=== PATIENT | male | born 1960 | race Caucasian/White ===

== ENCOUNTER → 2019-11-23 | Outpatient (CLI) | payer OTHER ==
[~2019-11-23] MED LIST: CEFAZOLIN SOD 1 GM/NS 50ML 0 ML IV ONE; CELEBREX50 MG PO; CHANTIX1 MG PO; CRESTOR10 MG PO; CYMBALTA30 MG PO; DEXILANT60 MG PO; FLOMAX0.4 MG PO; GABAPENTIN400 MG PO; HYDROXYZINE HCL25 MG PO; INDERAL LA120 MG PO; KLONOPIN2 MG PO; LUNESTA3 MG PO; SPIRIVA18 MCG INH; ZANAFLEX6 MG PO; ZOMIG5 MG PO; [UNRECOGNIZED DRUG - OTHER] INH
[2019-11-23 15:20] LABS: BASOPHILS % 0.7 % (0.0-1.0); EOSINOPHILS # (AUTO) 0.1 (0.0-0.4); EOSINOPHILS % 1.9 % (0.0-6.0); HEMATOCRIT 42.6 % (38.2-49.6); HEMOGLOBIN 14.1 g/dL (14.0-18.0); LYMPHOCYTES # (AUTO) 1.8 (1.0-3.2); LYMPHOCYTES % 31.4 % (18.0-39.1); MEAN CORPUSCULAR HEMOGLOBIN 28.8 pg (28-32); MEAN CORPUSCULAR HGB CONC 33.1 g/dL (31-35); MEAN CORPUSCULAR VOLUME 86.9 fL (81-99); MONOCYTES # (AUTO) 0.4 (0.2-0.8); MONOCYTES % 7.4 % (4.4-11.3); NEUTROPHILS # (AUTO) 3.4 (2.1-6.9); NEUTROPHILS % 58.3 % (38.7-80.0); PLATELET COUNT 165 x10e3/uL (140-360); RED CELL DISTRIBUTION WIDTH 12.6 % (11.7-14.4)
--- NOTE | 2019-11-23 15:56 | Diagnostic Imaging Report ---
EXAMINATION: CHEST 2 VIEWS INDICATION: Pre-operative COMPARISON: None FINDINGS: LINES/TUBES:None LUNGS:The lungs are well-inflated. No focal consolidation or pulmonary edema. PLEURA:No pleural effusion or pneumothorax. MEDIASTINUM:The cardiomediastinal silhouette appears normal in size and shape. BONES/SOFT TISSUES:No acute osseous injury. ABDOMEN:No free air under the diaphragm. IMPRESSION: No focal pneumonia or pulmonary edema. Signed by: Josemanuel Pearce MD on 11/23/2019 3:53 PM
--- OUTSIDE RECORDS SUMMARY | 2019-11-27 06:34 | XMS REPORT | Summary of Care ---
Author Author [facility] - Health Organization [facility] - Health Address Unknown Phone Unavailable Care Team Providers Care Aoc Airspace Control Officer Name Role Phone Bebo Acevedo PCP Reason for Visit * Reason Comments Refill Request celecoxib (CELEBREX) 100 mg capsule Encounter Details Care Team Description Date Type Department Gabe Jt Thao [id number] [place], [place] [id number] Refill Request (celecoxib (CELEBREX) 100 mg capsule) 06/22/2019 Telephone [facility] [address] [place] [phone] Allergies Comments Active Allergy Reactions Severity Noted Date Metoclopramide Hcl Swelling 11/19/2017 Ondansetron Hcl (Pf) Rash 11/19/2017 documented as of this encounter (statuses as of 06/23/2019) Medications End Date Status Medication Sig Dispensed Refills Start Date Active ZOLMitriptan 5 mg nasal Use in each 0 solution nostril as needed for Migraine. Active tiotropium (SPIRIVA WITH Inhale 18 mcg 0 HANDIHALER) 18 mcg daily. inhalation Active Dexlansoprazole Take by 0 (DEXILANT) 60 mg capsule mouth. Active varenicline (CHANTIX) 1 Take by 0 mg tablet mouth. Active proMETHazine 25 mg Insert 25 mg 0 suppository into rectum every 4 (four) hours as needed for Nausea and Vomiting (N/V). Active tamsulosin (FLOMAX) 0.4 Take by 0 mg 24 hr capsule mouth daily. Active propranolol LA (INDERAL Take 120 mg 0 LA) 120 mg 24 hr capsule by mouth daily. Active clonazePAM (KLONOPIN) 2 Take 2 mg by 0 mg tablet mouth 2 (two) times daily. Active DULoxetine 60 mg capsule Take 60 mg by 0 mouth 2 (two) times daily. Active XOPENEX HFA 45 0 mcg/actuation inhaler 8 Active hydrOXYzine 50 mg tablet 0 8 Active eszopiclone (LUNESTA) 3 Take 3 mg by 0 mg tablet mouth at bedtime. Active simvastatin 40 mg tablet 0 8 Active QUEtiapine 100 mg tablet 0 8 Active traMADOL 50 mg tablet Take 1 tablet 40 tablet 0 by mouth 8 every 6 (six) hours as needed for Pain (scale 4-6). Active HYDROcodone-acetaminophen Take 1 tablet 28 tablet 0 (NORCO) 10-325 mg tablet by mouth 8 every 6 (six) hours as needed for Pain (scale 7-10). Active traMADOL 50 mg tablet Take 1 tablet 40 tablet 0 by mouth 8 every 6 (six) hours as needed for Pain (scale 7-10). Active silver sulfADIAZINE 1 % Apply to 25 g 1 cream area(s) 2 8 (two) times daily. Active HYDROcodone-acetaminophen Take 1 tablet 15 tablet 0 (NORCO) 5-325 mg tablet by mouth 8 every 6 (six) hours as needed for Pain (scale 7-10). Active ZOLMitriptan 5 mg nasal Use 1 [place] 6 Each 3 solution in each 8 nostril as needed for Migraine. Active ZOLMitriptan 5 mg tablet Take 1 tablet 20 tablet 3 by mouth as 8 needed for Migraine (1 tab for migraine. Can be repeated ONCE after 2 hours. (max. 2 tabs/day).). Active traMADOL 50 mg Take 1 tablet 21 tablet 0 tabletIndications: Acute by mouth 8 pain of left knee every 6 (six) hours as needed for Pain (scale 7-10). Active SUMAtriptan 6 mg/0.5 mL inject 0.5 mL 9 mL 0 injectionIndications: under the 9 Migraine without status skin as migrainosus, not needed for intractable, unspecified Pain (scale migraine type 4-6). Active methocarbamol (ROBAXIN) Take 1 tablet 90 tablet 3 500 mg tabletIndications: by mouth 3 9 Chronic pain syndrome, (three) times Neuroma digital nerve, daily. right, Complex regional pain syndrome type 1 of right lower extremity Active lidocaine 5 % (700 Apply 1 patch 90 Patch 0 mg/patch) to affected 9 patchIndications: Chronic area for 12 pain syndrome, Neuroma hours. Wait digital nerve, right, 12 hours Complex regional pain between syndrome type 1 of right applications. lower extremity Active gabapentin 800 mg Take 1 tablet 90 tablet 3 tabletIndications: by mouth 3 9 Chronic pain syndrome, (three) times Neuroma digital nerve, daily. right, Complex regional pain syndrome type 1 of right lower extremity Active celecoxib (CELEBREX) 100 Take 1 60 capsule 3 mg capsuleIndications: capsule by 9 Chronic pain syndrome, mouth 2 (two) Neuroma digital nerve, times daily right, Complex regional with meals. pain syndrome type 1 of right lower extremity, Right foot pain 06/23/2019 Discontinued celecoxib (CELEBREX) 100 Take 1 60 capsule 3 mg capsuleIndications: capsule by 9 Chronic pain syndrome, mouth 2 (two) Neuroma digital nerve, times daily right, Complex regional with meals. pain syndrome type 1 of right lower extremity, Right foot pain documented as of this encounter (statuses as of 06/23/2019) Active Problems Problem Noted Date Complex regional pain syndrome type 1 of right lower extremity 01/15/2018 Overview: Added automatically from request for surgery [id number] Chronic pain syndrome 11/19/2017 Overview: Added automatically from request for surgery [id number] Neuroma digital nerve, right 11/19/2017 Overview: Added automatically from request for surgery [id number] Complex regional pain syndrome type 1 of both lower extremities 11/19/2017 Overview: Added automatically from request for surgery [id number] Migraine without status migrainosus, not intractable, unspecified migraine 11/19/2017 type Overview: Added automatically from request for surgery [id number] documented as of this encounter (statuses as of 06/23/2019) Social History Date Tobacco Use Types Packs/Day Years Used Light Tobacco Smoker Smokeless Tobacco: Never Used Comments: trying to quit taking Chantix Sex Assigned at Date Recorded Not on file Industry Job Start Date Occupation Not on file Not on file Not on file Travel End Travel History Travel Start No recent travel history available. documented as of this encounter Last Filed Vital Signs Not on filedocumented in this encounter Plan of Treatment Care Team Description Date Type Sales Assistant Institutional SalesJt Bernal [id number] [place] [address] [phone] 08/11/2019 Office Visit Pain Medicine Health Maintenance Due Date Last Done Comments HEPATITIS C (HCV) SCREEN 1960 PNEUMOCOCCAL 0-64 YEARS 1966 COMBINED SERIES (1 of 1 - PPSV23) DTaP,Tdap,and Td Vaccines 1980 (1 - Tdap) COLONOSCOPY 2011 Zoster Recombinant 2011 Vaccine (SHINGRIX) (1 of 2) LUNG CANCER SCREEN: 2016 Recommended for age 55-80 with 30 + pack year history INFLUENZA VACCINE (#1) 2019 documented as of this encounter Implants Device Identifier Shelf Expiration Date Model / Serial / Lot Implanted Type Area Manufactur er 07/29/2021 [id number] / [id number] / [id number] Lead Vectris 1x8 Compact Trial Lead N/A: Back Medtronic Medtronic #[id number] - [id number] Implanted: Qty: 1 on 12/26/2017 by Jt Bernal at [facility] 12/06/2021 [id number] / [id number] / [id number] Lead Vectris 1x8 Compact Trial Lead Back Medtronic Medtronic #[id number] - Sna Implanted: Qty: 1 on 12/26/2017 by Jt Bernal at [facility] documented as of this encounter Results Not on filedocumented in this encounter Visit Diagnoses Diagnosis Chronic pain syndrome Neuroma digital nerve, right Complex regional pain syndrome type 1 of right lower extremity Right foot pain Pain in limb documented in this encounter Insurance Type Payer Benefit Subscriber ID Effective Phone Address Plan / Dates Group [id number] 2017-P HEMA don documented as of this encounter
--- OUTSIDE RECORDS SUMMARY | 2019-11-27 06:34 | XMS REPORT | Summary of Care ---
Author Author [facility] - Health Organization [facility] - Health Address Unknown Phone Unavailable Care Team Providers Care Brand Ambassador Promotional Model Name Role Phone Bebo Acevedo PCP Reason for Visit * Reason Comments Rx Concern/Question Encounter Details Care Team Description Date Type Department Jt Bernal [id number] [place] [address] Rx Concern/Question 05/22/2019 Telephone [facility] [address] [place] [phone] Allergies Comments Active Allergy Reactions Severity Noted Date Metoclopramide Hcl Swelling 11/19/2017 Ondansetron Hcl (Pf) Rash 11/19/2017 documented as of this encounter (statuses as of 05/25/2019) Medications End Date Status Medication Sig Dispensed [...] times daily. Active XOPENEX HFA 45 0 01/02/201 mcg/actuation inhaler 8 Active hydrOXYzine 50 mg [...] Active ZOLMitriptan 5 mg nasal Use 1 [place] 6 Each 3 solution in each 8 [...] of right lower extremity, Right foot pain Active lidocaine 5 % (700 Apply 1 patch 90 Patch 0 05/25/ mg/patch) to affected 9 patchIndications: Chronic area [...] syndrome type 1 of right lower extremity 05/25/2019 Discontinued gabapentin 800 mg Take 1 tablet 90 tablet 3 tabletIndications: by mouth 3 9 Chronic pain syndrome, (three) times Neuroma digital nerve, daily. right, Complex regional pain syndrome type 1 of right lower extremity 05/25/2019 Discontinued lidocaine 5 % (700 Apply 1 patch 90 Patch 0 05/20/201 mg/patch) to affected 9 patchIndications: Chronic area for 12 pain syndrome, Neuroma hours. Wait digital nerve, right, 12 hours Complex regional pain between syndrome type 1 of right applications. lower extremity documented as of this encounter (statuses as of 05/25/2019) Active Problems Problem Noted Date Complex regional pain syndrome type 1 of right lower extremity 01/15/2018 Overview: Added automatically from request for surgery [id number] Chronic pain syndrome 11/19/2017 Overview: Added automatically from request for surgery [id number] Neuroma digital nerve, right 11/19/2017 Overview: Added automatically from request for surgery [id number] Complex regional pain syndrome type 1 of both lower extremities 11/19/2017 Overview: Added automatically from request for surgery [id number] Migraine without status migrainosus, not intractable, unspecified migraine 11/19/2017 type Overview: Added automatically from request for surgery [id number] documented as of this encounter (statuses as of 05/25/2019) Social History Date Tobacco Use Types Packs/Day [...] of Treatment Care Team Description Date Type Enterprise ManagerJt Bernal [id number] [place] [address] [phone] 08/11/2019 Office Visit Pain Medicine Health Maintenance Due Date Last Done Comments HEPATITIS C (HCV) SCREEN 1960 PNEUMOCOCCAL 0-64 YEARS 1967 COMBINED SERIES (1 of 1 - PPSV23) DTaP,Tdap,and Td Vaccines 1980 (1 - Tdap) COLONOSCOPY 2011 Zoster Recombinant 2011 Vaccine (SHINGRIX) (1 of 2) LUNG CANCER SCREEN: 2016 Recommended for age 55-80 with 30 + pack year history INFLUENZA VACCINE 06/28/2019 documented as of this encounter Implants Device Identifier Shelf Expiration Date Model / Serial / Lot Implanted Type Area Manufactur er 07/29/2021 [id number] / [id number] / [id number] Lead Vectris 1x8 Compact Trial Lead N/A: Back Medtronic Medtronic #[id number] - [id number] Implanted: Qty: 1 on 12/26/2017 by Jt Bernal at [facility] 12/06/2021 [id number] / [id number] / [id number] Lead Vectris 1x8 Compact Trial Lead Back Medtronic Medtronic #[id number] - Sna Implanted: Qty: 1 on 12/26/2017 by Jt Bernal at [facility] documented as of this encounter Results Not on filedocumented in this encounter Visit Diagnoses Diagnosis Chronic pain syndrome Neuroma digital nerve, right Complex regional pain syndrome type 1 of right lower extremity documented in this encounter Insurance Type Payer Benefit Subscriber ID Effective Phone Address Plan / Dates Group [id number] 2017-P [employer]EMA don documented as of this encounter
--- OUTSIDE RECORDS SUMMARY | 2019-11-27 06:34 | XMS REPORT ---
Author [facility] Address Unknown Phone Unavailable Care Team Providers Care Marketing Project Manager Name Role Phone MIGUELANGEL WONG Unavailable Unavailable Problems This patient has no known problems. Allergies, Adverse Reactions, Alerts This patient has no known allergies or adverse reactions. Medications This patient has no known medications. Results Test Description Test Time Test Comments Text Results Atomic Results Result Comments CHEST 2 VIEWS 2019-11-23 15:53:00 [place] [address] Patient Name: JOEY STAHL MR #: [id number] : 1960 Age/Sex: 59/M Req #: [id number] [facility] Physician: Ordered by: MIGUELANGEL WONG MD Report #: [id number] Location: OR Room/Bed: Procedure: [id number] DX/CHEST 2 VIEWS Exam Date: 11/23/19 Exam Time: 1536 REPORT STATUS: Signed EXAMINATION: CHEST 2 VIEWS INDICATION: Pre-operative COMPARISON: None FINDINGS: LINES/TUBES:None LUNGS:The lungs are well-inflated. No focal consolidation or pulmonary edema. PLEURA:No pleural effusion or pneumothorax. MEDIASTINUM:The cardiomediastinal silhouette appears normal in size and shape. BONES/SOFT TISSUES:No acute osseous injury. ABDOMEN:No free air under the diaphragm. IMPRESSION: No focal pneumonia or pulmonary edema. Signed by: Echo Pearce MD on 11/23/2019 3:53 PM Dictated By: ECHO PEARCE MD [id number] Transcribed By: MARGI on 11/23/19 805 COPY TO: MIGUELANGEL WONG MD
== END | disposition home or self-care (01) ==
LOC: RAD 05:00 → OR 11-27 06:28 → EDSTATUS 11-27 09:00
PROVIDERS: ATTEND Urology
DX: N43.40 Spermatocele of epididymis, unspecified (principal); Z53.8 Procedure and treatment not carried out for other reasons
CPT/HCPCS: 36415; 71046; 85025; 93005; J0690

== ENCOUNTER → 2020-03-04 | Day surgery (SDC) | payer OTHER ==
[2020-03-01 09:41] LABS: BASOPHILS # (AUTO) 0.1 (0.0-0.1); BASOPHILS % 0.7 % (0.0-1.0); EOSINOPHILS # (AUTO) 0.1 (0.0-0.4); EOSINOPHILS % 1.6 % (0.0-6.0); HEMATOCRIT 44.6 % (38.2-49.6); HEMOGLOBIN 14.9 g/dL (14.0-18.0); LYMPHOCYTES # (AUTO) 1.7 (1.0-3.2); LYMPHOCYTES % 25.3 % (18.0-39.1); MEAN CORPUSCULAR HEMOGLOBIN 29.3 pg (28-32); MEAN CORPUSCULAR HGB CONC 33.4 g/dL (31-35); MEAN CORPUSCULAR VOLUME 87.8 fL (81-99); MONOCYTES # (AUTO) 0.7 (0.2-0.8); MONOCYTES % 9.8 % (4.4-11.3); NEUTROPHILS # (AUTO) 4.3 (2.1-6.9); NEUTROPHILS % 62.3 % (38.7-80.0); PLATELET COUNT 196 x10e3/uL (140-360); RED BLOOD COUNT 5.08 x10e6/uL (4.3-5.7); RED CELL DISTRIBUTION WIDTH 13.5 % (11.7-14.4)
--- NOTE | 2020-03-01 09:54 | Diagnostic Imaging Report ---
EXAM: CHEST 2 VIEWS DATE: 03/01/2020 9:17 AM INDICATION: Preoperative evaluation COMPARISON: 11/23/2019 FINDINGS: The trachea is midline. The lungs are symmetrically expanded without evidence for large focal consolidation, pneumothorax, or significant pleural effusion. The cardiomediastinal silhouette is stable in appearance. No acute osseous abnormality is identified. The surrounding soft tissues are unremarkable. IMPRESSION: No acute cardiopulmonary process identified. Signed by: Dr. Lester Beatty MD on 03/01/2020 9:50 AM
[~2020-03-04] MED LIST changes: +ACETAMINOPHEN 1000 MG/100 ML 100 ML IV ONE; +ACETAMINOPHEN/CODEINE 300MG - 30MG TAB ONE; +AZELASTINE205.5 MCG/; +BUPIVACAINE HCL 0.5% INJ 30 ML VIAL INJ ONE; -CEFAZOLIN SOD 1 GM/NS 50ML 0 ML IV ONE; +CEFAZOLIN SOD 1 GM/NS 50ML 100 ML IV ONE; +DEXAMETHASONE SOD PHOS INJ 4 MG/ML VIAL ONE; +FENTANYL CITRATE/PF 100MCG/2 ML INJ ONE; +Imitrex INJ; +LIDOCAINE HCL 2% LOCAL INJ 5 ML SDV VIAL INJ ONE; +MIDAZOLAM HCL 2 MG/2 ML VIAL ONE; +PROPOFOL IV EMULSION 10 MG/ML 20 ML VIAL ONE; +ROBAXIN-750750 MG PO; +SEROQUEL200 MG PO; +SEVOFLURANE INHAL SOLN 250 ML PEN BTL ONE; +VITAMIN B-121000 MCG PO; +VITAMIN D2 PO; +XOPENEX CO1.25 MG/0. INH
--- OUTSIDE RECORDS SUMMARY | 2020-03-04 06:15 | XMS REPORT | Clinical Summary ---
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 Active DULoxetine (CYMBALTA) 60 Take 60 mg by 0 09/17 MG capsule mouth 2 (two) 8 times a day. Active eszopiclone (LUNESTA) 3 Take 3 mg by 0 mg tablet mouth 8 nightly. Active hydrOXYzine (ATARAX) 50 Take 50 mg by 0 MG tablet mouth every 8 8 (eight) hours as needed for allergies. Active XOPENEX HFA 45 Inhale 1 puff 0 mcg/actuation inhaler every 6 (six) 8 hours as needed for wheezing or shortness of breath. Active propranolol LA (INDERAL Take 120 mg 0 LA) 120 MG 24 hr capsule by mouth daily. Active tamsulosin (FLOMAX) 0.4 Take 0.4 mg 0 mg capsule by mouth daily. Active rosuvastatin (CRESTOR) 20 Take 1 tablet 90 tablet 1 MG tablet (20 mg total) 9 by mouth daily. Active celecoxib (CeleBREX) 100 Take 100 mg 0 05/20 MG capsule by mouth 2 9 (two) times a day. Active lidocaine (LIDODERM) 5 % Apply 1 patch 0 05/20 to affected 9 area for 12 hours. Wait 12 hours between applications. Active QUEtiapine (SEROquel) 200 Take 200 mg 0 05/29 0/201 MG tablet by mouth 9 every evening. Active gabapentin (NEURONTIN) Take 800 mg 2 01 800 mg tablet by mouth 4 9 (four) times a day. Active SUMAtriptan succinate Inject 6 mg 0 08/10/20 1 (IMITREX STATDOSE) 6 under the 9 mg/0.5 mL kit skin 2 (two) times a day as needed. Active TiZANidine (ZANAFLEX) 4 Take 4 mg by 2 MG capsule mouth 3 9 (three) times a day. Active varenicline (CHANTIX) 1 Take 1 mg by 0 mg tablet mouth 2 (two) times a day. Take with full glass of water. Active dexlansoprazole Take 60 mg by 0 (DEXILANT) 60 mg capsule mouth every morning. Active tiotropium (SPIRIVA) 18 Place 1 0 mcg per inhalation capsule into capsule inhaler and inhale once daily. 05/02/2020 Active azelastine (ASTELIN) 137 1 spray into 30 mL 1 mcg (0.1 %) nasal each nostril 0 sprayIndications: daily as Allergic rhinitis with needed for postnasal drip allergies for up to 90 days. [place] in each nostril 1-2 times daily as needed for allergy symptoms. 08/19/2019 Discontinued (Patient Report ed) celecoxib (CeleBREX) 100 TK 1 C PO BID 2 09/10 MG capsule WC 8 04/28/2019 Discontinued (Therapy comple grecia) gabapentin (NEURONTIN) 0 800 mg tablet 8 08/19/2019 Discontinued (Patient Report ed) lidocaine (LIDODERM) 5 % 0 8 08/19/2019 Discontinued (Patient Report ed) QUEtiapine (SEROquel) 100 0 MG tablet 8 06/22/2019 Discontinued (Reorder) rosuvastatin (CRESTOR) 20 0 MG tablet 8 07/27/2019 Discontinued (Reorder) SPIRIVA WITH HANDIHALER 0 18 mcg per inhalation 8 capsule 08/19/2019 Discontinued (Patient Report ed) ZOLMitriptan (ZOMIG) 5 MG 0 tablet 8 03/25/2019 Discontinued (Reorder) dexlansoprazole Take 1 90 capsule 0 (DEXILANT) 60 mg capsule (60 9 capsuleIndications: mg total) by Gastroesophageal reflux mouth daily disease without for 90 days. esophagitis 05/05/2019 Discontinued (Reorder) varenicline (CHANTIX Take 1 tablet 180 tablet 0 CONTINUING MONTH BOX) 1 (1 mg total) 9 mg tabletIndications: by mouth 2 Smoking (two) times a day for 90 days. Take with full glass of water. 08/19/2019 Discontinued (Med List Clean up) DEXILANT 60 mg TAKE 1 90 capsule 3 capsuleIndications: CAPSULE DAILY 9 Gastroesophageal reflux disease without esophagitis 04/28/2019 Discontinued (Reorder) amoxicillin-pot Take 1 tablet 14 tablet 0 04/28/20 1 clavulanate (AUGMENTIN) by mouth 2 9 875-125 mg per (two) times a tabletIndications: Acute day for 7 bacterial sinusitis days. 05/13/2019 traMADol (ULTRAM) 50 mg Take 1 tablet 30 tablet 0 tabletIndications: Right (50 mg total) 9 foot pain by mouth every 6 (six) hours as needed for moderate pain for up to 15 days. 05/05/2019 amoxicillin-pot Take 1 tablet 14 tablet 0 04/28/20 1 clavulanate (AUGMENTIN) by mouth 2 9 875-125 mg per (two) times a tabletIndications: Acute day for 7 bacterial sinusitis days. 06/26/2019 Discontinued (Reorder) CHANTIX 1 mg TAKE 1 TABLET 180 tablet 0 tabletIndications: TWICE A DAY, 9 Smoking TAKE WITH FULL GLASS OF WATER 08/19/2019 Discontinued (Med List Clean up) CHANTIX 1 mg TAKE 1 TABLET 180 tablet 4 tabletIndications: TWICE A DAY, 9 Smoking TAKE WITH FULL GLASS OF WATER 08/19/2019 Discontinued (Med List Clean up) SPIRIVA WITH HANDIHALER INHALE 2 2 capsule 4 18 mcg per inhalation PUFFS DAILY 9 capsule DIRECTED 08/19/2019 Discontinued (Med List Clean up) silver sulfadiazine Apply 0 08/31/201 (SILVADENE) 1 % cream topically. 8 09/20/2019 primidone (MYSOLINE) 50 Take 0.5 45 tablet 0 MG tablet tablets (25 9 mg total) by mouth every 8 (eight) hours for 30 days. 09/01/2019 Discontinued (Stop Taking at Discharge) traMADol (ULTRAM) 50 mg Take 1 tablet 30 tablet 0 tabletIndications: acute (50 mg total) 9 pain by mouth every 6 (six) hours as needed for moderate pain for up to 7 days .Acute Pain. 09/08/2019 acetaminophen-codeine Take 1 tablet 30 tablet 0 (TYLENOL WITH CODEINE #3) by mouth 9 300-30 mg per every 6 (six) tabletIndications: acute hours as pain needed for moderate pain for up to 7 days .Acute Pain. Status Hospital, Clinic, or Ordered Dose Route Frequency Start End Date Other Facility Date Administered Medication Ended methylPREDNISolone 80 mg IM once 04/28/20 acetate (DEPO-MEDROL) 19 9 injection 80 mgIndications: Acute bacterial sinusitis Active Problems Problem Noted Date Preop examination 12/04/2019 Last Assessment & Plan: Cleared for urologic/scrotal surgery. D iscussed pros and cons of procedure and therapy adherence with patient and spouse Tremor 08/27/2019 Castellano's cyst of knee, left 08/27/2019 Other chest pain 08/21/2019 Atherosclerosis of [place] arteries of extremities wit h rest pain, right leg 08/19/2019 Peripheral vascular disease 08/19/2019 Chronic pain syndrome 08/19/2019 Acute bacterial sinusitis 04/28/2019 Last Assessment & Plan: Hx and exam findings consistent with ac [place] bacterial sinusitis. Nasal saline sprays. Nasal steroids per medication orders. Augmentin per medication orders. Right foot pain 04/28/2019 Last Assessment & Plan: See military administrative technician. Venous insufficiency 04/28/2019 Migraine without status migrainosus, not intractable 04/28/2019 Cigarette smoker 10/23/2018 Mixed hyperlipidemia 10/14/2018 Essential hypertension 10/14/2018 Alcohol use 10/14/2018 Resolved Problems Problem Noted Date Resolved Date S/P arthroscopy 01/09/2019 04/28/2019 Acute medial meniscus tear of left knee 11/11/2018 04/28/2019 Last Assessment & Plan: Hx and MRI consitent with meniscus tear ; popliteal cyst and tibial stress fracture Referred to orthopedics for further danya luation and management Flu vaccine need 10/23/2018 04/28/2019 Effusion of left knee joint 10/23/2018 04/28/2019 Last Assessment & Plan: Left knee effusion; likely meniscal tea r Referred to orthopedics MRI of left knee IA injection performed; tolerated well. 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 Orders Only Family Medicine Mervat Linares MD Spider veins (Primary Dx) 09/16/2019 Office Visit Cardiovascular Maya Levy MA Appointment 09/09/2019 Documentation Cardiovascular Maya Levy MA Follow-up 09/08/2019 Documentation Cardiovascular Bebo Acevedo MD Cyst of testis (Primary Dx) 09/03/2019 Orders Only Family Medicine Trevin Wiggins MD Bawany, Fauzia Ahmad, MD 09/01/2019 Anesthesia General Surgery Event Mervat Linares MD right lower extremity angiogram, balloon angioplasty of the A.T 09/01/2019 Surgery General Surgery Mervat Linares MD 09/01/2019 Hospital General Surgery Encounter Mervat Linares MD 08/31/2019 Pre-Admit Pre-Admission Testi ng Testing Appointment Maya Levy MA Atherosclerosis of [place] arteries of ex tremities with rest pain, right leg (HCC) (Primary Dx); Right foot pain 08/28/2019 Prep for Cardiovascular Surgery Maya Levy MA Procedure 08/28/2019 Documentation Cardiovascular Maya Levy MA Prior Authorization 08/28/2019 Documentation Cardiovascular Mervat Linares MD Right foot pain (Primary Dx); Castellano's cyst of knee, left; Tremor 08/27/2019 Office Visit Cardiovascular Sharon Fair MA Appointment 08/25/2019 Documentation Cardiovascular Bebo Acevedo MD 08/24/2019 Orders Only Family Medicine Dustin Crowe MD Gemignani, MD Rose Boateng, Brooklynn Balbuena MD TIA (transient ischemic attack) (Primary Dx); Peripheral vascular disease (HCC) 08/19/2019 [facility] Internal Vt dicine - Encounter 08/21/2019 Mervat Linares MD Atherosclerosis of [place] arteries of ex tremities with rest pain, right leg (HCC) (Primary Dx); Venous insufficiency; Chest pain at rest 08/19/2019 Office Visit Cardiovascular Bebo Acevedo MD Right foot pain (Primary Dx) 08/12/2019 Orders Only Family Medicine Maya Levy MA Appointment 08/12/2019 Documentation Cardiovascular Isi Maki MA 07/27/2019 Refill Family Medicine Bebo Acevedo MD Smoking 06/26/2019 Refill Family Medicine Isi Maki MA 06/22/2019 Refill Family Medicine Bebo Acevedo MD Right foot pain 05/22/2019 Refill Family Medicine Bebo Acevedo MD Smoking 05/05/2019 Refill Family Medicine Bebo Acevedo MD 05/01/2019 Telephone Family Medicine Bebo Acevedo MD Acute bacterial sinusitis (Primary Dx); Right foot pain; Venous insufficiency; Migraine without status migrainosus, not intractable, unspecified migraine type 04/28/2019 Office Visit Family Medicine Isi Maki MA 04/23/2019 Telephone Family Medicine Bebo Acevedo MD 04/22/2019 Telephone Family Medicine Bebo Acevedo MD Gastroesophageal reflux disease without esophagitis 03/25/2019 Refill Family Medicine after 03/04/2019 Immunizations Name Administration Dates Next Due FLUBLOK QUAD PF 10/23/2018 FLUCELVAX QUAD PF 08/20/2019 Pneumococcal 08/20/2019 Polysaccharide Family History Medical History Relation Name Comments Alcohol abuse Father Breast cancer Mother Heart disease Mother Hypertension Mother Relation Name Status Comments Father Mother Alive Social History Date Tobacco Use Types Packs/Day Years Used Current Every Day Smoker Cigarettes 1 40 Smokeless Tobacco: Never Used Tobacco Cessation: Ready to Quit: No; Co unseling Given: Yes Drinks/Week oz/Week Comments Alcohol Use daily Yes Sex Assigned at Date Recorded Not on file Industry Job Start Date Occupation Not on file Not on file Not on file Travel End Travel History Travel Start No recent travel history available. Last Filed Vital Signs Reading Time Taken Comments Vital Sign 116/58 12/03/2019 1:29 PM [employer] Blood Pressure 77 12/03/2019 1:29 PM [employer] Pulse 36.4 C (97.5 F) 12/03/2019 1:29 PM [employer] Temperature 17 09/01/2019 12:39 PM [employer] Respiratory Rate 97% 12/03/2019 1:29 PM [employer] Oxygen Saturation - - Inhaled Oxygen Concentration 94.8 kg (209 lb) 12/03/2019 1:29 PM [employer] Weight 177.8 cm (5' 10") 12/03/2019 1:29 PM [employer] Height 29.99 12/03/2019 1:29 PM [employer] [employer] Body Mass Index Plan of Treatment Health Maintenance Due Date Last Done Comments COLONOSCOPY SCREENING 2011 SHINGLES VACCINES (#1) 2011 INFLUENZA VACCINE 05/28/2020 08/20/2019, 10/23/2018 Implants Device Identifier Shelf Expiration Date Model / Serial / L ot Implanted Type Area Manufactur er 02/25/2020 [id number] / / [id number] Device Vasclr Clsr Vasoactive Cardiovasc Left: Gr oin Intstnl Peptd 6fr Angio-Seal - ular [id number] Implants Implanted: 09/01/2019 at [facility] (Quantity not on file) Procedures Comments Procedure Name Priority Date/Time Associated Diag nosis US EXTREMITY LIMITED LEFT Routine 09/14/2019 Bake r's cyst of knee, 2:03 PM TIMBER ROBBER left MRI BRAIN W WO CONTRAST Routine 08/21/2019 5:13 PM CDT HC CTA HRT COR ART/BYPASS Routine 08/20/2019 W/3D IM 10:38 AM CDT US ANKLE BRACHIAL INDEX Routine 08/19/2019 9:03 PM CDT TROPONIN Timed 08/19/2019 8:47 PM CDT TTE COMPLETE, WO Routine 08/19/2019 CONTRAST, W DOPPLER 5:02 PM CDT (94606) TROPONIN Timed 08/19/2019 3:17 PM CDT US DUPLEX ARTERIAL LOWER STAT 08/19/2019 EXTREMITY RIGHT 2:[address] ANGIOGRAM HEAD W WO STAT 08/19/2019 CONTRAST 12:[address] ANGIOGRAM NECK W WO STAT 08/19/2019 CONTRAST 12:27 PM CDT ECG ED PRELIMINARY Routine 08/19/2019 INTERPRETATION 11:[address] STROKE BRAIN WO STAT 08/19/2019 CONTRAST 11:56 AM CDT ESTIMATED GFR STAT 08/19/2019 11:51 AM CDT B NATRIURETIC PEPTIDE STAT 08/19/2019 11:51 AM CDT TROPONIN STAT 08/19/2019 11:51 AM CDT LIPASE LEVEL STAT 08/19/2019 11:51 AM CDT HEPATIC FUNCTION PANEL STAT 08/19/2019 11:51 AM CDT BASIC METABOLIC PANEL STAT 08/19/2019 11:51 AM CDT PARTIAL THROMBOPLASTIN STAT 08/19/2019 TIME (PTT) 11:51 AM CDT PROTHROMBIN TIME WITH INR STAT 08/19/2019 11:51 AM CDT HC COMPLETE BLD COUNT STAT 08/19/2019 W/AUTO DIFF 11:51 AM CDT ECG 12-LEAD STAT 08/19/2019 11:14 AM CDT after 03/04/2019 Results * US Extremity Limited Left (09/14/2019 2:03 PM TIMBER ROBBER) Specimen Narrative Performed At Procedure: US EXTREMITY LIMITED LEFT [facility] REFERRING PHYSICIAN: MERVAT LINARES HISTORY: M71.22 Synovial cyst of poplit eal space (Castellano) left knee, Prior history of L popliteal Castellano's cyst b ut no diagnostic imaging COMPARISON: None TECHNIQUE: Targeted grayscale and Doppler images w ere obtained of the left posterior knee. FINDINGS: An approximately 1.3 x 0.7 x 1.2 cm het erogeneous hyperechoic structure is seen along the lateral posterior aspect of t he knee. Color Doppler demonstrate no evidence of internal flow. Findings are suggesting of a lipoma. No other solid or cystic mass is seen. IMPRESSION: Finding suggestive of approximately 1.3 x 0.7 x 1.2 cm posterior lateral left knee lipoma. [id number] Procedure Note Interface, Radiology Results Incoming - 09/14/2019 3:00 PM TIMBER ROBBER Procedure: US EXTREMITY LIMITED LEFT REFERRING PHYSICIAN: MERVAT LINARES HISTORY: M71.22 Synovial cyst of popliteal space (Castellano) left knee, Prior history of L popliteal Castellano's cyst but no diagnostic imaging COMPARISON: None TECHNIQUE: Targeted grayscale and Doppler images were obtained of the left posterior knee. FINDINGS: An approximately 1.3 x 0.7 x 1.2 cm heterogeneous hyperechoic structure is seen along the lateral posterior aspect of the knee. Color Doppler demonstrate no evidence of internal flow. Findings are suggesting of a lipoma. No other solid or cystic mass is seen. IMPRESSION: Finding suggestive of approximately 1.3 x 0.7 x 1.2 cm posterior lateral left knee lipoma. [id number] Performing Organization Address City/State/Zipcode Ph one Number [facility] [address] [place] [address] * MRI Brain W Wo Contrast (08/21/2019 5:13 PM CDT) Specimen Narrative Performed At [facility] EXAMINATION: MRI BRAIN W WO CONTRAST COMPARISON: None CLINICAL HISTORY: tremmors progressin g ataxia COMMENTS: Multiplanar MR imaging of t he brain was obtained with and without contrast material. FINDINGS: The brain shows no acute is chemic change, hemorrhage or mass effect. There is minimal signal change in the p eriventricular white matter. The expected flow voids are present in the internal carotid and basilar arteries. No enhancing lesions are seen in the br ain. IMPRESSION: No acute change in the br ain. [facility]-[id number] Procedure Note Interface, Radiology Results Incoming - 08/21/2019 5:26 PM CDT EXAMINATION: MRI BRAIN W WO CONTRAST COMPARISON: None CLINICAL HISTORY: tremmors progressing ataxia COMMENTS: Multiplanar MR imaging of the brain was obtained with and without contrast material. FINDINGS: The brain shows no acute ischemic change, hemorrhage or mass effect. There is minimal signal change in the periventricular white matter. The expected flow voids are present in the internal carotid and basilar arteries. No enhancing lesions are seen in the brain. IMPRESSION: No acute change in the brain. [facility]-[id number] Performing Organization Address City/State/Zipcode Ph one Number [facility] [address] [place] [address] * Cta coronary arteries w contrast (08/20/2019 10:38 AM CDT) Specimen Narrative Performed At EXAMINATION: CTA CORONARY ARTERIES W CONTRAST R [facility] CLINICAL HISTORY: chest pain TECHNIQUE: Multiple CT angiographic mitra ges of the heart were obtained during intravenous administration of iodinated contrast. Computerized reformatted images of the coronary arteries and 3-D volume rendered images of the heart were also obtained. CT imaging was performed with iterative re construction technique and/or automated exposure control to reduce radiation do se. Limited [id number] images were reconstructed. COMPARISON: Limited comparison with c hest radiograph 08/25/2018 STUDY QUALITY: Study quality is mildly limited by motion artifact, but is overall diagnostic. DOSE (DLP): 282 mGycm FINDINGS: Calcium score: Agatston calcium score is calculated as 63, which places the patient in the 50th percentile compared to patients of the same age, gender, and ethnicity. Coronary angiography: Left main (LM): No detectable atheroscl erosis. The left main bifurcates into left anterior descending and left circu mflex branches. Left anterior descending (LAD): Calcifi ed plaque in the proximal vessel results in mild luminal narrowing. Calcified pl aque in the mid vessel is eccentric and results in minimal luminal irregularity . Left circumflex (LCX): No detectable at herosclerosis. Course and caliber are within normal limits. Right coronary (RCA): There is a tiny c alcified plaque in the mid RCA which results in only minimal luminal irregul arity. The patient is co-dominant. Cardiac chamber morphology: Grossly normal cardiac chamber volume. No focal wall thickening or thinning. No intraluminal filling defects. No identi fiable septal defects. Cardiac valves: Limited assessment of the valves. No gr oss abnormality. Pericardium: There is no pericardial effusion or per icardial thickening. Aorta: Maximum diameter of the visualized asce nding aorta is 3.0 cm. No evidence of acute aortic syndrome. Pulmonary artery: No central pulmonary embolism. Extracardiac findings: Lungs and airways: No acute airspace di sease or suspicious pulmonary nodules. Mild paraseptal emphysema is present. M ild bronchial wall thickening with subsegmental bronchial mucous plugging in the lower lungs. Pleura: No pleural effusion or pneumoth orax. Mediastinum and lymph nodes: No lymphad enopathy. Upper abdomen: No suspicious abnormalit ies. Musculoskeletal: No suspicious osseous lesions. IMPRESSION: 1.Small calcified plaques in the LAD an d RCA result in minimal to mild luminal narrowing. 2.Mild paraseptal emphysema. 3.Mild bronchial wall thickening with s ubsegmental bronchial mucous plugging, which can indicate bronchitis. CAD-RADS category: 2 Explanation of CAD-RADS categories: CAD-RADS 0: No detectable coronary athe rosclerosis. CAD-RADS 1: Minimal (<25%) coronary nicholas nosis (this category also includes patients with positive remodeling, i.e. atherosclerosis without stenosis). CAD-RADS 2: Mild (25-49%) coronary sten osis. CAD-RADS 3: Moderate (50-69%) coronary stenosis. CAD-RADS 4A: Severe (70-99%) coronary s tenosis. CAD-RADS 4B: >50% LM stenosis -OR- 3-ve ssel >70% stenosis. CAD-RADS 5: Occlusion (100% stenosis). Modifiers: N: Non-diagnostic. This can be combined with the above CAD-RADS categories, i.e. only a portion of the coronary tree is non-diagnostic. S: Stent. G: Graft. V: Vulnerability. Two or more of the fo llowing features are present: Low-attenuation plaque, positive remode ling, spotty calcification, or the "napkin ring sign." [facility]-[id number] Procedure Note Interface, Radiology Results Incoming - 08/20/2019 11:55 AM CDT EXAMINATION: CTA CORONARY ARTERIES W CONTRAST CLINICAL HISTORY: chest pain TECHNIQUE: Multiple CT angiographic images of the heart were obtained during intravenous administration of iodinated contrast. Computerized reformatted images of the coronary arteries and 3-D volume rendered images of the heart were also obtained. CT imaging was performed with iterative reconstruction technique and/or automated exposure control to reduce radiation dose. Limited bmubt-jy-yacu images were reconstructed. COMPARISON: Limited comparison with chest radiograph 08/25/2018 STUDY QUALITY: Study quality is mildly limited by motion artifact, but is overall diagnostic. DOSE (DLP): 282 mGycm FINDINGS: Calcium score: Agatston calcium score is calculated as 63, which places the patient in the 50th percentile compared to patients of the same age, gender, and ethnicity. Coronary angiography: Left main (LM): No detectable atherosclerosis. The left main bifurcates into left anterior descending and left circumflex branches. Left anterior descending (LAD): Calcified plaque in the proximal vessel results in mild luminal narrowing. Calcified plaque in the mid vessel is eccentric and results in minimal luminal irregularity. Left circumflex (LCX): No detectable atherosclerosis. Course and caliber are within normal limits. Right coronary (RCA): There is a tiny calcified plaque in the mid RCA which results in only minimal luminal irregularity. The patient is co-dominant. Cardiac chamber morphology: Grossly normal cardiac chamber volume. No focal wall thickening or thinning. No intraluminal filling defects. No identifiable septal defects. Cardiac valves: Limited assessment of the valves. No gross abnormality. Pericardium: There is no pericardial effusion or pericardial thickening. Aorta: Maximum diameter of the visualized ascending aorta is 3.0 cm. No evidence of acute aortic syndrome. Pulmonary artery: No central pulmonary embolism. Extracardiac findings: Lungs and airways: No acute airspace disease or suspicious pulmonary nodules. Mild paraseptal emphysema is present. Mild bronchial wall thickening with subsegmental bronchial mucous plugging in the lower lungs. Pleura: No pleural effusion or pneumothorax. Mediastinum and lymph nodes: No lymphadenopathy. Upper abdomen: No suspicious abnormalities. Musculoskeletal: No suspicious osseous lesions. IMPRESSION: 1.Small calcified plaques in the LAD and RCA result in minimal to mild luminal narrowing. 2.Mild paraseptal emphysema. 3.Mild bronchial wall thickening with chacon bsegmental bronchial mucous plugging, which can indicate bronchitis. CAD-RADS category: 2 Explanation of CAD-RADS categories: CAD-RADS 0: No detectable coronary atherosclerosis. CAD-RADS 1: Minimal (<25%) coronary stenosis (this category also includes patients with positive remodeling, i.e. atherosclerosis without stenosis). CAD-RADS 2: Mild (25-49%) coronary stenosis. CAD-RADS 3: Moderate (50-69%) coronary stenosis. CAD-RADS 4A: Severe (70-99%) coronary stenosis. CAD-RADS 4B: >50% LM stenosis -OR- 3-vessel >70% stenosis. CAD-RADS 5: Occlusion (100% stenosis). Modifiers: N: Non-diagnostic. This can be combined with the above CAD-RADS categories, i.e. only a portion of the coronary tree is non-diagnostic. S: Stent. G: Graft. V: Vulnerability. Two or more of the following features are present: Low- attenuation plaque, positive remodeling, spotty calcification, or the "napkin ring sign." [id number] Performing Organization Address [facility] Ph one Number [facility] [address] [place] [address] * Us ankle brachial index (08/19/2019 9:03 PM CDT) Specimen Narrative Performed At Examination: US ANKLE BRACHIAL INDEX COMPLETE R [facility] Clinical History: RLE rest pain Comparison: None. Findings: Bilateral lower extremity segmental pre ssure study was performed for evaluation of ankle brachial indices. Right: Posterior tibial artery: 1.16 Dorsalis pedis artery: 0.93 Left: Posterior tibial artery: 0.90 Dorsalis pedis artery: 1.13 IMPRESSION: 1. Right ankle-brachial index is 1.16 w hich is normal. 2. Left ankle-brachial index is 1.13 wh ich is normal. [facility]-[id number] Procedure Note Interface, Radiology Results Incoming - 08/19/2019 11:38 PM CDT Examination: US ANKLE BRACHIAL INDEX COMPLETE Clinical History: RLE rest pain Comparison: None. Findings: Bilateral lower extremity segmental pressure study was performed for evaluation of ankle brachial indices. Right: Posterior tibial artery: 1.16 Dorsalis pedis artery: 0.93 Left: Posterior tibial artery: 0.90 Dorsalis pedis artery: 1.13 IMPRESSION: 1. Right ankle-brachial index is 1.16 wh ich is normal. 2. Left ankle-brachial index is 1.13 whi ch is normal. [facility]-[id number] Performing Organization Address City/State/Zipcode Ph one Number [facility] [address] [place] [address] * Troponin (08/19/2019 8:47 PM CDT) Only the most recent of 3 results within the time period is included. Pathologist [facility] Troponin <0.006 0.000 - 0.040 ng/mL [place] Comment: CONFUCIANIST [facility] changed methodology effective: HOSPITAL 03/03/2019 at 10:00 am The new method has a 99th percentile cutoff of 0.040 ng/mL Specimen Plasma specimen Performing Organization Address City/State[facility] Ph one Number [facility] DEPARTMENT OF [address] [place] [address] PATHOLOGY AND GENOMIC MEDICINE [facility] [address] * Echocardiogram complete w contrast and 3D if needed (08/19/2019 5:02 PM CDT) Pathologist [facility] Velocity Ratio 1.00 m/s HM SYNGO (V1/V2) IVS,d 0.95 cm SYNGO EF 43.68 % SYNGO LVPWD,d 0.83 cm HM [facility] AoV Mean PG 3.40 mmHg HM [facility] AV LVOT peak 5.62 mmHg HM [facility] gradient MV mean 0.94 mmHg HM [facility] gradient MV valve area p 3.03 cm2 SYNGO 1/2 method E/A ratio 1.07 HM [facility] E wave 260.41 msec HM [facility]GO decelartion time LVOT Diam,S 1.92 cm HM [facility]NGO LVOT area 2.89 cm2 HM [facility] LVOT Vmax 1.24 m/s [facility] LVOT VTI 0.20 m HM [facility] AoV Peak PG 5.34 mmHg HM [facility] MV Peak E Real 0.76 m/s [facility] MV stenosis 72.62 ms HM [facility] pressure 1/2 time MV Peak A Real 0.71 m/s [facility] BSA 2.07 m2 [facility] Ao Root 3.01 cm [facility] Diameter AoV Area, Vmax 2.98 cm2 [facility] AoV Area, VTI 2.50 cm2 [facility] AoV Vmax 1.24 m/s [facility] BSA Roland 2.12 m2 HM [facility] BSA Haycock 2.12 m2 [facility] IVS/LVPW,2D 1.15 [facility] Left Atrium 3.94 cm HM [facility] Dimension Anterior LV,d 4.59 cm HM [facility]GO LV,s 3.60 cm [facility] BMI 28.27 kg/m2 [facility] MV E A ratio 1.06 [facility] AoV area i VTI 1.20 cm2/m2 [facility] BSA Sawyer MR peak grad 2.86 mmHg HM [facility] Ao Root 3.01 cm [facility] Diameter LV SYS VOL 54.55 ml HM [facility] LV TAPIA VOL 96.85 ml [facility] LA area s A4C 16.74 cm2 [facility] LA Vol MOD A4C 44.06 ml [facility] LV SI Teich 2D 20.40 ml/m2 [facility] LV SV Teich 2D 42.30 ml HM [facility] LV Vol s Teich 54.55 ml [facility] PSAX LVOT CI 2.20 l/min/m2 [facility] LVOT CO 4.57 l/min [facility] LVOT HR for 72.34 bpm [facility] LVOT CO LVOT SI 30.43 ml/m2 [facility] MV Vmax 0.85 m [facility] MV VTI Tips 0.17 m [facility] AoV Vmn 0.86 [facility] IVS s 2D 1.21 [facility] LV FS Cube 2D 21.50 [facility] LV FS Teich 2D 21.50 [facility] AoV VTI 0.30 m [facility] LV EF,2D 51.63 % [facility] MV AE ratio 0.95 [facility] LVOT Vmn 0.76 [facility] Pt Size 177.80 [facility] Pt Wt 89.36 [facility] Aov area Vmn 2.79 cm2 [facility] LVOT mean grad 2.66 mmHg [facility] MAX Pred HR 161.99 [facility] 85 of MPHR 137.69 [facility] AoV area I VMN 1.35 cm2/m2 [facility] bsa Calc MPHR 161.99 bpm [facility] IVS pct thck 27.14 % [facility] PLAX LV SI Cube 2D 24.08 ml/m2 [facility] LV SV Cube 2D 49.93 ml [facility] LV vol d cube 96.71 ml HM [facility] 2D LV vol s cube 46.78 ml [facility] 2D LVPW pct thck 48.28 % [facility] PLAX LVPW s PLAX 1.23 cm HM [facility] MV Decel slope 2.91 m/s2 HM [facility] Pred Exer Dur 9.01 HM [facility] R1 Pred METS R1 9.30 HM [facility] Specimen Narrative Performed At [facility] Left ventricular systolic function i s normal. Left Ventricular ejection fraction i s 50 - 55%. Spectral Doppler shows impaired rela xation pattern of left ventricular diastolic filling. No hemodynamically significant valvu lar abnormalities. Performing Organization Address City/State/Zipcode Ph one Number [facility] [address] [place] [address], [place] * Us duplex arterial lower extremity (08/19/2019 2:26 PM CDT) Specimen Narrative Performed At Examination: US DUPLEX ARTERIAL LOWER EXTREMITY RIG [facility] Clinical history: pad Comparison: There are no prior studie s for comparison. Technique: The right common femoral, femoral, popliteal, posterior tibial, anterior tibial, and dorsalis pedis art eries were evaluated using real-time B-mode grayscale, Doppler spectral anal ysis, and Doppler color flow imaging. IMPRESSION: No hemodynamically significant stenosis of the right lower extremity arteries. All of the interrogated vessels demonst rate appropriate multiphasic waveforms. Findings: Peak systolic arterial velocities are a s follows: Right leg: Common femoral: 76.3 c m/s with triphasic flow. Superficial Femoral: Proximal: 90.94 cm/s with triphasic flow. Mid: 93.05 cm/s with triphasic flow. Distal: 93.05 cm/s with triphasic flow. Popliteal: Proximal: 44.06 cm/s with triphasic flow. Mid: 44.77 cm/s with triphasic flow. Distal: 43.35 cm/s with triphasic flow. Posterior tibial: Proximal: 31.96 cm/s with triphasic flow. Mid: 34.09 cm/s with triphasic flow. Distal: 34.09 cm/s with biphasic flow. Anterior tibial: Proximal: 30.53 cm/s with biphasic flow. Mid: 36.23 cm/s with biphasic flow. Distal: 28.85 cm/s with biphasic flow. Dorsalis pedis: Not visualized. [id number] Procedure Note Hm Interface, Radiology Results Incoming - 08/19/2019 2:35 PM CDT Examination: US DUPLEX ARTERIAL LOWER EXTREMITY RIGHT Clinical history: pad Comparison: There are no prior studies for comparison. Technique: The right common femoral, femoral, popliteal, posterior tibial, anterior tibial, and dorsalis pedis arteries were evaluated using real-time B- mode grayscale, Doppler spectral analysis, and Doppler color flow imaging. IMPRESSION: No hemodynamically significant stenosis of the right lower extremity arteries. All of the interrogated vessels demonstrate appropriate multiphasic waveforms. Findings: Peak systolic arterial velocities are as follows: Right leg: Common femoral: 76.3 cm/s with triphasic flow. Superficial Femoral: Proximal: 90.94 cm/s with triphasic flow. Mid: 93.05 cm/s with triphasic flow. Distal: 93.05 cm/s with triphasic flow. Popliteal: Proximal: 44.06 cm/s with triphasic flow. Mid: 44.77 cm/s with triphasic flow. Distal: 43.35 cm/s with triphasic flow. Posterior tibial: Proximal: 31.96 cm/s with triphasic flow. Mid: 34.09 cm/s with triphasic flow. Distal: 34.09 cm/s with biphasic flow. Anterior tibial: Proximal: 30.53 cm/s with biphasic flow. Mid: 36.23 cm/s with biphasic flow. Distal: 28.85 cm/s with biphasic flow. Dorsalis pedis: Not visualized. [id number] Performing Organization Address City/State/Zipcode Ph one Number [facility] [address] [place] [address] * CTA Head W Wo Contrast (08/19/2019 12:28 PM CDT) Specimen Narrative Performed At EXAMINATION: CT ANGIOGRAM HEAD W WO CONTRAST HM RADI ANT CLINICAL HISTORY: code cva COMPARISON: None TECHNIQUE: Imaging of the intracrania l circulation was obtained from the skull base to the vertex during the arterial phase of enhancement. Postprocessing was performed with MIP multiplanar and 3D r econstructed images. CT imaging was performed with iterative reconstruction technique and/ or automated exposure control to reduce radiation dose. FINDINGS: No evidence of large vessel occlusion o r moderate to high-grade narrowing. No aneurysm identified. Mild arteriosclerosis of the paraclinoi d internal carotid arteries without significant stenosis. Relative diminuti on of the left A1 segment. Right posterior communicating artery. Left po sterior communicating artery is absent or markedly diminutive. Dominant left vertebral artery. Major venous sinuses appear patent with in the limitation of the acquired vascular phase. IMPRESSION: The major branches of the anterior and posterior arterial circulations of the brain are patent without evidence of di ssection, aneurysm, or significant stenosis. [id number] Procedure Note Interface, Radiology Results Incoming - 08/19/2019 12:36 PM CDT EXAMINATION: CT ANGIOGRAM HEAD W WO CONTRAST CLINICAL HISTORY: code cva COMPARISON: None TECHNIQUE: Imaging of the intracranial circulation was obtained from the skull base to the vertex during the arterial phase of enhancement. Postprocessing was performed with MIP multiplanar and 3D reconstructed images. CT imaging was performed with iterative reconstruction technique and/or automated exposure control to reduce radiation dose. FINDINGS: No evidence of large vessel occlusion or moderate to high-grade narrowing. No aneurysm identified. Mild arteriosclerosis of the paraclinoid internal carotid arteries without significant stenosis. Relative diminution of the left A1 segment. Right posterior communicating artery. Left posterior communicating artery is absent or markedly diminutive. Dominant left vertebral artery. Major venous sinuses appear patent within the limitation of the acquired vascular phase. IMPRESSION: The major branches of the anterior and posterior arterial circulations of the brain are patent without evidence of dissection, aneurysm, or significant stenosis. [id number] Performing Organization Address City/State/Zipcode Ph one Number [facility] [address] [place] [address] * CTA Neck W Wo Contrast (08/19/2019 12:27 PM CDT) Specimen Narrative Performed At EXAMINATION: CT ANGIOGRAM NECK W WO CONTRAST RA QUINTERO CLINICAL HISTORY: code cva COMPARISON: None. TECHNIQUE: Neck CTA with multi-planar MIP and volu metric rendering (3D) after bolus intravenous iodinated contrast administ ration was performed. All CT images were acquired using low-d ose technique with automated exposure control. FINDINGS: Normal branching pattern of the aortic arch. Dominant left vertebral artery. Minimal arteriosclerosis of the proxima l left external carotid artery. The bilateral cervical carotid and vert ebral arterial systems appear widely patent without evidence of dissection o r stenosis (0% by NASCET criteria). Mild centrilobular and moderate parasep kandice emphysema within the right greater than left lung apices. Degenerative keisha nges of the cervical spine which appear most pronounced from C4 to C7. IMPRESSION: No hemodynamically significant cervical carotid or vertebral artery stenosis. [id number] Procedure Note Hm Interface, Radiology Results Incoming - 08/19/2019 12:33 PM CDT EXAMINATION: CT ANGIOGRAM NECK W WO CONTRAST CLINICAL HISTORY: code cva COMPARISON: None. TECHNIQUE: Neck CTA with multi-planar MIP and volumetric rendering (3D) after bolus intravenous iodinated contrast administration was performed. All CT images were acquired using low-dose technique with automated exposure control. FINDINGS: Normal branching pattern of the aortic arch. Dominant left vertebral artery. Minimal arteriosclerosis of the proximal left external carotid artery. The bilateral cervical carotid and vertebral arterial systems appear widely patent without evidence of dissection or stenosis (0% by NASCET criteria). Mild centrilobular and moderate paraseptal emphysema within the right greater than left lung apices. Degenerative changes of the cervical spine which appear most pronounced from C4 to C7. IMPRESSION: No hemodynamically significant cervical carotid or vertebral artery stenosis. [id number] Performing Organization Address City/State/Zipcode Ph one Number [facility] [address] [place] [address] * ECG ED Preliminary Interpretation - Not an Order (08/19/2019 11:58 AM CDT) Narrative Performed At Alia Loyola MD 2018 7:20 PM ECG ED Preliminary Interpretation - Not an Order Performed by: Alia Loyola M D Authorized by: Alia Loyola MD ECG reviewed by ED Physician in the abs ence of a outsole handler: yes Interpretation: Interpretation: normal Rate: ECG rate: 69 ECG rate assessment: normal Rhythm: Rhythm: sinus rhythm Ectopy: Ectopy: none QRS: QRS axis: Normal QRS intervals: Normal Conduction: Conduction: normal ST segments: ST segments: Non-specific T waves: T waves: normal * CT Stroke Brain Wo Contrast (08/19/2019 11:56 AM CDT) Specimen Narrative Performed At EXAMINATION: CT STROKE BRAIN WO CONTRAST RADIAN CT IMAGING WAS PERFORMED WITH ITERATIVE RECONSTRUCTION TECHNIQUE AND/OR AUTOMATED EXPOSURE CONTROL TO REDUCE RA DIATION DOSE. CLINICAL HISTORY: code cva COMPARISON: None. FINDINGS: There is no acute intracranial abnormal ity. Specifically there is no intracranial hemorrhage, mass effect or acute infarction. There are minimal if any nonspecific ce rebral white matter microvascular changes. There is very mild cerebral cortical volume loss and minimal cerebellar volume loss. Atherosclerotic calcifications noted in the distal internal carotid arteries. There is minimal mucosal thickening in the ethmoid and maxillary sinuses. IMPRESSION: No acute abnormality. ALIA LOYOLA was informed of t hese findings on 08/19/2019 11:59 AM and acknowledged understanding of the findi ngs. [id number] Procedure Note Hm Interface, Radiology Results Incoming - 08/19/2019 12:03 PM CDT EXAMINATION: CT STROKE BRAIN WO CONTRAST CT IMAGING WAS PERFORMED WITH ITERATIVE RECONSTRUCTION TECHNIQUE AND/OR AUTOMATED EXPOSURE CONTROL TO REDUCE RADIATION DOSE. CLINICAL HISTORY: code cva COMPARISON: None. FINDINGS: There is no acute intracranial abnormality. Specifically there is no intracranial hemorrhage, mass effect or acute infarction. There are minimal if any nonspecific cerebral white matter microvascular changes. There is very mild cerebral cortical volume loss and minimal cerebellar volume loss. Atherosclerotic calcifications noted in the distal internal carotid arteries. There is minimal mucosal thickening in the ethmoid and maxillary sinuses. IMPRESSION: No acute abnormality. ALIA LOYOLA was informed of these findings on 08/19/2019 11:59 AM and acknowledged understanding of the findings. [id number] Performing Organization Address City/[facility] Ph one Number [facility] [address] [place] [address] * Estimated GFR (08/19/2019 11:51 AM CDT) Pathologist [facility] Estimated GFR 86 mL/min/1.73 m2 [place] Comment: [facility]CIANIST [facility] HOSPITAL G1 >=90 Normal or high G2 60-89 Mildly decreased G3a 45-59 Mildly to moderately decreased G3b 30-44 Moderately to severely decreased G4 15-29 Severely decreased G5 <15 Kidney failure The eGFR was calculated using the Chronic Kidney Disease Epidemiology Collaboration (CKD-EPI) equation. Interpretation is based on recommendations of the National Kidney Foundation-Kidney Disease Outcomes Quality Initiative (NKF-KDOQI) published in 2014. Specimen Plasma specimen Performing Organization Address City/State/[facility] Ph one Number [facility] DEPARTMENT OF [address] [place] [address] PATHOLOGY AND GENOMIC MEDICINE [place] CONFUCIANIST PILOT KNOB [address] * Partial thromboplastin time, activated (08/19/2019 11:51 AM CDT) Pathologist [facility] PTT 32.6 23.0 - 36.0 sec [place] Comment: CONFUCIANIST PTT therapeutic range for PILOT KNOB unfractionated heparin is HOSPITAL 61.0-112.0 seconds which corresponds to Anti-Xa 0.3-0.7 U/ml. Specimen Blood Performing Organization Address City/State/Zipcode Ph one Number [facility] DEPARTMENT OF [address] [place] [address] PATHOLOGY AND GENOMIC MEDICINE [facility] [address] [place] [address] * Prothrombin time with INR (08/19/2019 11:51 AM CDT) Pathologist [facility] Prothrombin 13.1 11.5 - 14.5 sec [place] time [facility] INR 1.02 [place] Comment: CONFUCIANIST For patients on anticoagulant PILOT KNOB therapy, reference ranges HOSPITAL below: Indication: INR Value Treatment of Venous Thrombosis, 2.0-3.0 pulmonary emboli, or prophylaxis of a venous thrombosis, or systemic emboli. High dose, high risk patients 3.0-4.5 with mechanical valves. NOTE: INR values over 3.0 are sometimes associated with gastrointestinal hemorrhage, especially values over 4.0. Specimen Blood Performing Organization Address City/[facility] Ph one Number [facility] DEPARTMENT OF [address] [place] [address] PATHOLOGY AND GENOMIC MEDICINE [address] * CBC with platelet and differential (08/19/2019 11:51 AM CDT) Pathologist [facility] WBC 5.8 4.2 - 11.0 k/uL [facility] RBC 4.86 4.04 - 5.86 m/uL [facility] HGB 14.4 13.0 - 17.3 g/dL [facility] HCT 44.1 34.0 - 45.0 % [facility] MCV 90.7 80.0 - 98.0 fL [facility] MCH 29.6 27.0 - 34.0 pg [facility] MCHC 32.7 31.5 - 36.5 g/dL [facility] RDW - SD 41.0 37.0 - 51.0 fL [facility] MPV 11.0 (H) 7.4 - 10.4 fL [facility] Platelet count 148 (L) 150 - 400 k/uL [facility] Nucleated RBC 0.00 /100 WBC [facility] Neutrophils 54.7 36.0 - 66.0 % [facility] Lymphocytes 33.8 24.0 - 44.0 % [facility] Monocytes 7.9 (H) 0.0 - 6.0 % [facility] Eosinophils 2.2 0.0 - 6.0 % [facility] Basophils 0.9 0.0 - 1.2 % [facility] Immature 0.5 0.0 - 1.0 % [place] granulocytes [facility] Specimen Blood Performing Organization Address City/[facility] Ph one Number [facility] DEPARTMENT OF [address] [place] [address] PATHOLOGY AND GENOMIC MEDICINE [address] * B natriuretic peptide (08/19/2019 11:51 AM CDT) BNP <5 0 - 100 pg/mL [facility] Specimen Blood Performing Organization Address City/[facility] Ph one Number [facility] DEPARTMENT OF [address] [place] [address] PATHOLOGY AND GENOMIC MEDICINE [address] * Lipase level (08/19/2019 11:51 AM CDT) Lipase 48 13 - 60 U/L [facility] Specimen Plasma specimen Performing Organization Address City/[email or web address] Ph one Number [facility] DEPARTMENT OF [address] [place] [address] PATHOLOGY AND GENOMIC MEDICINE [address] * Hepatic function panel (08/19/2019 11:51 AM CDT) Albumin 3.5 3.5 - 5.0 g/dL [facility] Total bilirubin 0.3 0.2 - 1.2 mg/dL [facility] Bilirubin 0.2 0.0 - 0.4 mg/dL [place] direct [facility] Alkaline 114 0 - 129 U/L [place] phosphatase [facility] Protein 6.6 6.3 - 8.3 g/dL [facility] ALT 18 5 - 50 U/L [facility] AST 28 10 - 50 U/L [facility] Specimen Plasma specimen Performing Organization Address City/[facility] Ph one Number [facility] DEPARTMENT OF [address] [facility] [place] [address] PATHOLOGY AND GENOMIC MEDICINE [address] * Basic metabolic panel (08/19/2019 11:51 AM CDT) [facility] Sodium 138 135 - 150 mEq/L [facility] Potassium 4.4 3.5 - 5.0 mEq/L [facility] Chloride 100 98 - 112 mEq/L [facility] CO2 25 24 - 31 mmol/L [facility] Anion gap 13@ANIO 7 - 15 mEq/L [facility] BUN 17 7 - 18 mg/dL [facility] Creatinine 0.97 0.70 - 1.20 mg/dL [facility] Glucose 102 (H) 65 - 100 mg/dL [facility] Calcium 9.2 8.3 - 10.2 mg/dL [facility] Specimen Plasma specimen Performing Organization Address City/[facility] Ph one Number [facility] DE[facility]MENT OF [address] [facility] [place] [address] PATHOLOGY AND GENOMIC MEDICINE [facility] [address] [place] [address] * ECG 12 lead (08/19/2019 11:14 AM CDT) [facility] Ventricular 69 [facility]USE rate Atrial rate 69 [facility] MS interval 128 [facility] QRSD interval 88 [facility] QT interval 406 [facility] QTC interval 435 [facility] P axis 1 73 [facility] QRS axis 1 42 [facility] T wave axis 95 [facility] EKG impression Normal sinus [facility] MUSE rhythm-Nonspecific ST and T wave abnormality-Abnormal ECG-In automated comparison with ECG of 22-DEC-2018 12:29,-Nonspecific T wave abnormality now evident in Anterolateral leads- Specimen Narrative Performed At This result has an attachment that is n ot available. Performing Organization Address City/State/Zipcode Ph one Number [facility] MUSE [address] [place] [address] after 03/04/2019 Insurance Type Payer Benefit Subscriber ID Effective Phone Address Plan / Dates Group xxxxxxxxx 2018- [facility] Advance Directives For more information, please contact: [phone] Patient Drop Count Associate Explanation Type Date Recorded Advance Directives, 08/31/2019 5:08 PM Living Will and Medical Power of Associate [employer] Advance Directives, 08/25/2018 4:49 PM Living Will and Medical Power of [employer] Advance Directives, 12/22/2018 10:36 AM Living Will and Medical Power of Associate [employer]
--- OUTSIDE RECORDS SUMMARY | 2020-03-04 06:16 | XMS REPORT | Summary of Care ---
Author Author [facility] - Health Organization [facility] - Health Address Unknown Phone Unavailable Care Team Providers Care Fire Crew Worker Name Role Phone Bebo Acevedo PCP Reason for Referral * Radiology Services (Routine) Referred By Contact Referred To Contact Status Reason Specialty Diagnoses / Procedures Valeriy Bolanos MD [address] [place] [address] New Request Diagnostic Diagnoses Radiology Right foot pain P rocedures XR FOOT 3+ VW RIGHT Reason for Visit * Reason Comments Pain * (Routine) Referred By Contact Referred To Contact Status Reason Specialty Diagnoses / Procedures Jt Bernal MD [address] [facility] [id number] [place] [address] Valeriy Bolanos MD [address] [place] [address] Authorized Orthopedic Diagnoses Surgery Chronic pain syndrome Neuroma digital nerve, right Complex regional pain syndrome type 1 of right lower extremity Right foot pain P rocedures CONSULT/REFERRAL ORTHOPAEDIC SURGERY Encounter Details Care Team Description Date Type Department Valeriy Bolanos MD [address] [place], [place] [id number] Right foot pain (Primary Dx) 12/28/2019 Office Visit [facility] edic Surgery- [address] [place] [address] Allergies Comments Active Allergy Reactions Severity Noted Date Metoclopramide Hcl Swelling High 11/19/2017 Ondansetron Hcl (Pf) Rash High 8 documented as of this encounter (statuses as of 12/28/2019) Medications End Date Status Medication Sig Dispensed Refills Start Date Active tiotropium (SPIRIVA WITH Inhale 18 mcg 0 HANDIHALER) 18 mcg daily. inhalation Active Dexlansoprazole Take by 0 (DEXILANT) 60 mg capsule mouth. Active proMETHazine 25 mg Insert 25 [...] 0 mouth 2 (two) times daily. Active eszopiclone (LUNESTA) 3 Take 3 mg by 0 mg tablet mouth at bedtime. Active simvastatin 40 mg tablet 0 8 Active silver sulfADIAZINE 1 % Apply to 25 g 1 cream area(s) 2 8 (two) times daily. Active lidocaine 5 % (700 Apply 1 patch 30 Patch 2 08/11 mg/patch) to affected 9 patchIndications: Chronic area for 12 pain syndrome, Foot pain, hours. Wait right, Complex regional 12 hours pain syndrome type 1 of between right lower extremity applications. Active celecoxib (CELEBREX) 100 Take 1 60 capsule 3 1 mg capsuleIndications: capsule by 9 Chronic pain syndrome, mouth 2 (two) Interdigital neuroma of times daily right foot, Complex with meals. regional pain syndrome type 1 of right lower extremity, Right foot pain Active tiZANidine 6 mg Take 1 90 capsule 2 capsuleIndications: capsule by 0 Chronic pain syndrome, mouth 3 Complex regional pain (three) times syndrome type 1 of right daily. lower extremity, Right foot pain, Adjustment disorder with mixed anxiety and depressed mood, Foot pain, right Active meloxicam (MOBIC) 15 mg Take 1 tablet 7 tablet 0 tabletIndications: by mouth 0 Recurrent falls while daily. walking Active SUMAtriptan 6 mg/0.5 mL inject 6 mg 0 injection under the 9 skin. Active levalbuterol (XOPENEX Inhale 1 0 08/28/20 1 HFA) 45 mcg/actuation Puff. 8 inhaler Active hydrOXYzine 50 mg tablet Take 50 mg by 0 09/17 mouth. 8 Active QUEtiapine 200 mg tablet Take 200 mg 0 06/16 by mouth. 9 Active rosuvastatin 20 mg tablet Take 20 mg by 0 05/29 mouth. 9 Active gabapentin 800 mg tablet Take 800 mg 0 08/11 by mouth. 9 12/29/2019 Active HYDROcodone-acetaminophen Take 1 tablet 28 tablet 0 5-325 mg by mouth 0 tabletIndications: Callus every 6 (six) of foot hours as needed for Pain (scale 4-6) or Pain (scale 7-10) for up to 7 days. 01/12/2020 Active gabapentin 300 mg Take 1 63 capsule 0 12/22/19 2 capsuleIndications: capsule by 0 Callus of foot mouth 3 (three) times daily for 21 days. 01/12/2020 Active methocarbamol 500 mg Take 1 tablet 84 tablet 0 tabletIndications: Callus by mouth 4 0 of foot (four) times daily for 21 days. documented as of this encounter (statuses as of 12/28/2019) Active Problems Problem Noted Date Capsulitis of metatarsophalangeal (MTP) joint of righ t foot 10/19/2019 Callus of foot 10/19/2019 Complex regional pain syndrome type 1 of right lower extremity 01/15/2018 Overview: Added automatically from request for [employer] [id number] Chronic pain syndrome 11/19/2017 Overview: Added automatically from request for [employer] [id number] Neuroma digital nerve, right 11/19/2017 Overview: Added automatically from request for [employer] [id number] Complex regional pain syndrome type 1 of both lower e xtremities 11/19/2017 Overview: [facility] [id number] Migraine without status migrainosus, not intractable, unspecified migraine 11/19/2017 type Overview: Added automatically from request for [employer] [id number] documented as of this encounter (statuses as of 12/28/2019) Social History Date Tobacco Use Types Packs/Day [...] of this encounter Last Filed Vital Signs Reading Time Taken Comments Vital Sign 102/54 12/28/2019 1:48 PM LINEN ROOM WORKER Blood Pressure 80 12/28/2019 1:48 PM LINEN ROOM WORKER Pulse 36.6 C (97.8 F) 12/28/2019 1:48 PM LINEN ROOM WORKER Temperature - - Respiratory Rate - - Oxygen Saturation - - Inhaled Oxygen Concentration 93 kg (205 lb) 12/28/2019 1:48 PM LINEN ROOM WORKER Weight 177.8 cm (5' 10") 12/28/2019 1:48 PM LINEN ROOM WORKER Height 29.41 12/28/2019 1:48 PM LINEN ROOM WORKER Body Mass Index documented in this encounter Progress Notes * Antonio Maki MD - 12/28/2019 1:50 PM LINEN ROOM WORKER Orthopedic Clinic Note 12/28/2019 15:03 CC: Surgery follow up Procedure: right 2-4 MT head resections 12/22/19 Patient is doing well, pain controlled, no difficulties with incisions. Complia nt with weight bearing restrictions. No fevers/chills, chest pain/SOB, nausea/vomiting, new numbness, tingling, weakn ess Metoclopramide hcl and Ondansetron hcl (pf) No past medical history on file. Past Surgical History: Procedure Laterality Date DORSAL COLUMN STIMULATOR TRIAL 12/26/2017 DORSAL COLUMN STIMULATOR TRIAL Bilateral 12/26/2017 Surgeon: Jt Bernal; [facility] JOINT CAPSULOTOMY Right 05/20/2018 Surgeon: Valeriy Bolanos MD; Location[facility] METATARSAL HEAD RESECTION (SHX) Right 12/22/2019 Surgeon: Valeriy Bolanos MD; Location: [facility] METATARSAL OSTEOTOMY Right 05/20/2018 Surgeon: Valeriy Bolanos MD; Location: [facility] NEUROMA EXCISION Right 05/20/2018 Surgeon: Valeriy Bolanos MD; Location: [facility] TENDON LENGTHENING Right 05/20/2018 Surgeon: Valeriy Bolanos MD; Location: [facility] General Physical Examination: BP 102/54 | Pulse 80 | Temp 36.6 C (97.8 F) (Temporal Artery) | Ht 70" (1 77.8 cm) | Wt 93 kg (205 lb) | BMI 29.41 kg/m No fever General: NAD, pleasant and cooperative Resp: Breathing comfortably on RA Cardiology: Regular rate Specific Physical Examination: RLE: Incisions are clean dry and intact, no signs of infection. Minor bruising SILT + EHL/FHL Assessment/Diagnosis: S/p procedure as above Plan: WBAT RLE Post op shoe Follow-up 1 month N ROOM WORKER documented in this encounter Plan of Treatment Care Team Description Date Type Precast WorkerJt Bernal MD [id number] [place], [place] [address] 02/09/2020 Office Visit Pain Medicine Date/Time Name Type Priority Associated Diag noses 12/28/2019 2:23 PM LINEN ROOM WORKER XR FOOT 3+ VW RIGHT IMAGING Routine Right foot pain Order Schedule Name Type Priority Associated Diag noses Expected: 12/28/2019, Expires: 1 XR FOOT 3+ VW RIGHT IMAGING Routine Right foot pain Health Maintenance Due Date Last Done Comments HEPATITIS C (HCV) SCREEN 1960 PNEUMOCOCCAL 0-64 YEARS 1967 COMBINED SERIES (1 of 1 - PPSV23) DTaP,Tdap,and Td Vaccines 1972 (1 - Tdap) COLONOSCOPY 2011 Zoster Recombinant 2011 Vaccine (SHINGRIX) (1 of 2) LUNG CANCER SCREEN: 2016 Recommended for age 55-80 with 30 + pack year history INFLUENZA VACCINE (#1) 2019 documented as of this encounter Implants Device Identifier Shelf Expiration Date Model / Serial / L ot Implanted Type Area Manufactur er 07/29/2021 [id number] / [id number] / [id number] Lead Vectris 1x8 Compact Trial Lead N/A: Back Medtronic Medtronic #[id number] - [id number] Implanted: Qty: 1 on 12/26/2017 by Jt Bernal MD at [facility] 12/06/2021 [id number] / [id number] / [id number] Lead Vectris 1x8 Compact Trial Lead Back Medtronic Medtronic #[id number] - Sna Implanted: Qty: 1 on 12/26/2017 by Jt Bernal MD at [facility] documented as of this encounter Results Not on filedocumented in this encounter Visit Diagnoses Diagnosis Right foot pain - Primary Pain in limb documented in this encounter Insurance Type Payer Benefit Subscriber ID Effective Phone Address Plan / Dates Group [id number] 2017-Teddy don (Home) [place] [address] documented as of this encounter
--- OUTSIDE RECORDS SUMMARY | 2020-03-04 06:16 | XMS REPORT | Summary of Care ---
Author Author [facility] - Health Organization [facility] - Health Address Unknown Phone Unavailable Care Team Providers Care Furnishings Conservator Name Role Phone Bebo Acevedo PCP Encounter Details Care Team Description Date Type Department Doctor Unassigned, [place] [address] [place] [address] 11/10/2019 Patient Secure [facility] Health Anesthe bethel M[facility] [address] [place] [address] Allergies Comments Active Allergy Reactions Severity Noted Date Metoclopramide Hcl Swelling 11/19/2017 Ondansetron Hcl (Pf) Rash 11/19/2017 documented as of this encounter (statuses as of 12/12/2019) Medications End Date Status Medication Sig Dispensed [...] times daily. Active XOPENEX HFA 45 0 10/29/201 mcg/actuation inhaler 8 Active hydrOXYzine 50 mg [...] Active ZOLMitriptan 5 mg nasal Use 1 Logan 6 Each 3 solution in each 8 [...] unspecified Pain (scale migraine type 4-6). Active lidocaine 5 % (700 Apply 1 [...] anxiety and depressed mood, Foot pain, right documented as of this encounter (statuses as of 12/12/2019) Active Problems Problem Noted Date Capsulitis of metatarsophalangeal (MTP) joint of righ t foot 10/19/2019 Callus of foot 10/19/2019 Complex regional pain syndrome type 1 of right lower extremity 01/15/2018 Overview: Added automatically from request for [employer] [id number] Chronic pain syndrome 11/19/2017 Overview: Added automatically from request for [employer] [id number] Neuroma digital nerve, right 11/19/2017 Overview: Added automatically from request for [employer] [id number] Complex regional pain syndrome type 1 of both lower e xtremities 11/19/2017 Overview: Added automatically from request for [employer] [id number] Migraine without status migrainosus, not intractable, unspecified migraine 11/19/2017 type Overview: Added automatically from request for [employer] [id number] documented as of this encounter (statuses as of 12/12/2019) Social History Date Tobacco Use Types Packs/Day [...] of Treatment Care Team Description Date Type Specialty Valeriy Bolanos MD [address] [place], [place] [id number] 12/22/2019 Hospital Surgery Encounter Wily Foster MD PHD [address] [facility] [id number] [place] [address] [phone] 12/22/2019 Anesthesia Surgery Event Valeriy Bolanos MD [address] [place] [address] METATARSAL HEAD RESECTION 12/22/2019 Surgery Surgery Valeriy Bolanos MD [address] [place] [address] 12/28/2019 Office Visit Orthopedic Surgery Jt Bernal MD [id number] [place], [place] [id number] 02/09/2020 Office Visit Pain Medicine Health Maintenance Due [...] ot Implanted Type Area Manufactur er 07/29/2021 [id number] / [id number] / [id number] Lead Vectris 1x8 Compact Trial Lead N/A: Back [employer] Medtronic #[id number] - [id number] Implanted: Qty: 1 on 12/26/2017 by Jt Bernal MD at [facility] 12/06/2021 [id number] / [id number] / [id number] Lead Vectris 1x8 Compact Trial Lead Back [employer] Medtronic #[id number] - Sna Implanted: Qty: 1 on 12/26/2017 by Jt Bernal MD at [facility] documented as of this encounter Results Not on filedocumented in this encounter Insurance Type Payer Benefit Subscriber ID Effective Phone Address Plan / Dates Group [id number] 2017-P HEMA don documented as of this encounter
--- OUTSIDE RECORDS SUMMARY | 2020-03-04 06:16 | XMS REPORT | Summary of Care ---
Author Author [facility] Organization [facility] Address Unknown Phone Unavailable Care Team Providers Care Medical Management Specialist Name Role Phone Bebo Acevedo PCP Reason for Referral * Other (Routine) Referred By Contact Referred To Contact Status Reason Specialty Diagnoses / Procedures Trudi Bolanos MD [address] [place] [address] Trudi Bolanos MD [address] [place] [address] New Request Diagnoses Callus of foot P rocedures Discharge Follow-up: Specialty Provider TRUDI BOLANOS; 2 Weeks * (Routine) Referred By Contact Referred To Contact Status Reason Specialty Diagnoses / Procedures Trudi Bolanos MD [address] [place] [address] New Request Diagnostic Diagnoses Radiology Callus of foot P rocedures [place] TIME OR (NON-REPORTABLE) Reason for Visit * Auth/Cert Referred By Contact Referred To Contact Status Reason Specialty Diagnoses / Procedures Vl Preop [address] [place] [address] Surgery Diagnoses right foot pain P rocedures [place] CLOSED RX TAR-METATAR DISLOC,ANESTH METATARSAL HEAD RESECTION Encounter Details Care Team Description Date Type Department Trudi Bolanos MD [address] [place] [address] 12/22/2019 Hospital [facility] Encounter Post Anesthesia Care Unit [address] [place] [address] Allergies Comments Active Allergy Reactions Severity Noted Date Metoclopramide Hcl Swelling High 11/19/2017 Ondansetron Hcl (Pf) Rash High 8 documented as of this encounter (statuses as of 12/22/2019) Medications End Date Status Medication Sig Dispensed [...] right lower extremity, Right foot pain Active meloxicam (MOBIC) 15 mg Take 1 tablet 7 tablet 0 tabletIndications: by mouth 0 Recurrent falls while daily. walking Active SUMAtriptan 6 mg/0.5 mL inject 6 mg 0 injection under the 9 skin. Active levalbuterol (XOPENEX Inhale 1 0 11/01/20 1 HFA) 45 mcg/actuation Puff. 8 inhaler Active hydrOXYzine 50 mg tablet Take 50 mg by 0 09/17 mouth. 8 Active QUEtiapine 200 mg tablet Take 200 mg 0 06/16 by mouth. 9 Active rosuvastatin 20 mg tablet Take 20 mg by 0 / mouth. 9 Active gabapentin 800 mg tablet [...] foot (four) times daily for 21 days. 12/15/2019 Discontinued (Patient Report ed) ZOLMitriptan 5 mg nasal Use in each 0 solution nostril as needed for Migraine. 12/15/2019 Discontinued (Patient Report ed) varenicline (CHANTIX) 1 Take by 0 mg tablet mouth. 12/15/2019 Discontinued (Patient Report ed) XOPENEX HFA 45 0 mcg/actuation inhaler 8 12/15/2019 Discontinued (Patient Report ed) hydrOXYzine 50 mg tablet 0 8 12/15/2019 Discontinued (Patient Report ed) QUEtiapine 100 mg tablet 0 8 12/15/2019 Discontinued (Patient Report ed) traMADOL 50 mg tablet Take 1 tablet 40 tablet 0 by mouth 8 every 6 (six) hours as needed for Pain (scale 4-6). 12/15/2019 Discontinued (Patient Report ed) HYDROcodone-acetaminophen Take 1 tablet 28 tablet 0 (NORCO) 10-325 mg tablet by mouth 8 every 6 (six) hours as needed for Pain (scale 7-10). 12/15/2019 Discontinued (Patient Report ed) traMADOL 50 mg tablet Take 1 tablet 40 tablet 0 by mouth 8 every 6 (six) hours as needed for Pain (scale 7-10). 12/15/2019 Discontinued (Patient Report ed) HYDROcodone-acetaminophen Take 1 tablet 15 tablet 0 (NORCO) 5-325 mg tablet by mouth 8 every 6 (six) hours as needed for Pain (scale 7-10). 12/15/2019 Discontinued (Patient Report ed) ZOLMitriptan 5 mg nasal Use 1 [place] 6 Each 3 solution in each 8 nostril as needed for Migraine. 12/15/2019 Discontinued (Patient Report ed) ZOLMitriptan 5 mg tablet Take 1 tablet 20 tablet 3 by mouth as 8 needed for Migraine (1 tab for migraine. Can be repeated ONCE after 2 hours. (max. 2 tabs/day).). 12/15/2019 Discontinued (Patient Report ed) traMADOL 50 mg Take 1 tablet 21 tablet 0 tabletIndications: Acute by mouth 8 pain of left knee every 6 (six) hours as needed for Pain (scale 7-10). 12/15/2019 Discontinued (Patient Report ed) SUMAtriptan 6 mg/0.5 mL inject 0.5 mL 9 mL 0 injectionIndications: under the 9 Migraine without status skin as migrainosus, not needed for intractable, unspecified Pain (scale migraine type 4-6). documented as of this encounter (statuses as of 12/22/2019) Active Problems Problem Noted Date Capsulitis of metatarsophalangeal (MTP) joint of righ t foot 10/19/2019 Callus of foot 10/19/2019 Complex regional pain syndrome type 1 of right lower extremity 01/15/2018 Overview: Added automatically from request for [employer] [id number] Chronic pain syndrome 11/19/2017 Overview: Added automatically from request for [employer] [id number] Neuroma digital nerve, right 11/19/2017 Overview: Added automatically from request for [employer] [id number] Complex regional pain syndrome type 1 of both lower e xtremities 11/19/2017 Overview: Added automatically from request for chacon [employer] [id number] Migraine without status migrainosus, not intractable, unspecified migraine 11/19/2017 type Overview: Added automatically from request for ines orantes [id number] documented as of this encounter (statuses as of 12/22/2019) Social History Date Tobacco Use Types Packs/Day Years Used Light Tobacco Smoker Smokeless Tobacco: Never Used Tobacco Cessation: Ready to Quit: Yes; C ounseling Given: Yes Comments: trying to quit taking Chantix Sex Assigned at Date Recorded Not on file Industry Job Start Date Occupation Not on file Not on file Not on file Travel End Travel History Travel Start No recent travel history available. documented as of this encounter Last Filed Vital Signs Reading Time Taken Comments Vital Sign 112/76 12/22/2019 5:40 PM [employer] Blood Pressure 79 12/22/2019 5:40 PM [employer] Pulse 36.4 C (97.6 F) 12/22/2019 3:57 PM [employer] Temperature 9 12/22/2019 5:40 PM [employer] Respiratory Rate 95% 12/22/2019 5:40 PM [employer] Oxygen Saturation - - Inhaled Oxygen Concentration 93 kg (205 lb) 12/22/2019 2:49 PM [employer] Weight 177.8 cm (5' 10") 12/22/2019 2:49 PM [employer] Height 29.41 12/22/2019 2:49 PM [employer] Body Mass Index documented in this encounter Discharge Summaries * Antonio Maki MD - 12/22/2019 3:56 PM [employer] Orthopaedic Surgery Discharge Summary Date of Service: 12/22/2019 Admit Date: 12/22/2019 Discharge Date: 12/22/2019 Attending MD: Luis Miguel PCP: Bebo Acevedo Primary Diagnosis: Right metatarsal pain Final Diagnosis: SAME Secondary Diagnosis: There are no hospital problems to display for this patient. Patient Active Problem List Diagnosis Date Noted Capsulitis of metatarsophalangeal (MTP) joint of right foot 10/19/2019 Callus of foot 10/19/2019 Complex regional pain syndrome type 1 of right lower extremity 01/15/2018 Chronic pain syndrome 11/19/2017 Neuroma digital nerve, right 11/19/2017 Complex regional pain syndrome type 1 of both lower extremities 11/19/2017 Migraine without status migrainosus, not intractable, unspecified migraine t ype 11/19/2017 Principal Procedure: Procedure(s): METATARSAL HEAD RESECTION Significant Lab/X-Rays: No results for input(s): WBC, HGB, HCT, PLT in the last 72 hours. No results for input(s): NA, K, CL, TCO2, BUN, CREAT, GLU, PHOS, MG, CA, CAIONIZ in the last 72 hours. No results for input(s): PTPAT, PTINR, APTTMNNM, APTTPAT in the last 72 hours. HOSPITAL COURSE: Patient was admitted from the day surgery unit and was taken to the operating ro om on 12/22/2019 for procedures above . Postoperatively, he was transferred to [facility] PACU in stable condition. At the time of discharge, he was afebrile and his p ain was well controlled. No postoperative complications were noted. Patient chacon itable for discharge. CONDITION: good DIET: Resume regular diet WBAT DISCHARGE MEDICATIONS: Current Discharge Medication List START taking these medications Details gabapentin (NEURONTIN) 300 mg Take 300 mg by mouth 3 (three) times daily. Qty: 63 capsule, Refills: 0 Start date: 12/22/2019, End date: 01/12/2020 Associated Diagnoses: Callus of foot HYDROcodone-acetaminophen (NORCO 5) 1 tablet Take 1 tablet by mouth every 6 (six ) hours as needed for Pain (scale 4-6) or Pain (scale 7-10). Qty: 28 tablet, Refills: 0 Start date: 12/22/2019, End date: 12/29/2019 Comments: This prescription may have been written by a resident physician, in w [facility] case, the LEATHA number may need to be manually entered for the prescription t o be valid Associated Diagnoses: Callus of foot methocarbamol (ROBAXIN) 500 mg Take 500 mg by mouth 4 (four) times daily. Qty: 84 tablet, Refills: 0 Start date: 12/22/2019, End date: 01/12/2020 Associated Diagnoses: Callus of foot CONTINUE these medications which have NOT CHANGED Details gabapentin (NEURONTIN) 800 mg Take 800 mg by mouth. hydrOXYzine (ATARAX) 50 mg Take 50 mg by mouth. levalbuterol (XOPENEX HFA) 1 Puff Inhale 1 Puff. QUEtiapine (SEROQUEL) 200 mg Take 200 mg by mouth. rosuvastatin (CRESTOR) 20 mg Take 20 mg by mouth. SUMAtriptan (IMITREX) 6 mg inject 6 mg under the skin. meloxicam (MOBIC) 15 mg Take 15 mg by mouth daily. Qty: 7 tablet, Refills: 0 Associated Diagnoses: Recurrent falls while walking celecoxib (CELEBREX) 100 mg Take 100 mg by mouth 2 (two) times daily with meals. Qty: 60 capsule, Refills: 3 Associated Diagnoses: Chronic pain syndrome; Interdigital neuroma of right foot ; Complex regional pain syndrome type 1 of right lower extremity; Right foot sherry n lidocaine 5 % (700 mg/patch) patch Apply 1 patch to affected area for 12 hours. Wait 12 hours between applications. Qty: 30 Patch, Refills: 2 Associated Diagnoses: Chronic pain syndrome; Foot pain, right; Complex regional pain syndrome type 1 of right lower extremity silver sulfADIAZINE 1 % cream Apply to area(s) 2 (two) times daily. Qty: 25 g, Refills: 1 eszopiclone (LUNESTA) 3 mg Take 3 mg by mouth at bedtime. clonazePAM (KLONOPIN) 2 mg Take 2 mg by mouth 2 (two) times daily. Dexlansoprazole (DEXILANT) 60 mg capsule Take by mouth. DULoxetine (CYMBALTA) 60 mg Take 60 mg by mouth 2 (two) times daily. propranolol LA (INDERAL LA) 120 mg Take 120 mg by mouth daily. tamsulosin (FLOMAX) 0.4 mg 24 hr capsule Take by mouth daily. tiotropium (SPIRIVA) 18 mcg Inhale 18 mcg daily. tiZANidine (ZANAFLEX) 6 mg Take 6 mg by mouth 3 (three) times daily. Qty: 90 capsule, Refills: 2 Associated Diagnoses: Chronic pain syndrome; Complex regional pain syndrome typ e 1 of right lower extremity; Right foot pain; Adjustment disorder with mixed an xiety and depressed mood; Foot pain, right simvastatin 40 mg tablet proMETHazine (PHENERGAN) 25 mg Insert 25 mg into rectum every 4 (four) hours as needed for Nausea and Vomiting (N/V). DISCHARGE: Discharged: Home WOUND CARE: - Please take ibuprofen and tylenol with every meal with a daily zantac prior to using narcotic pain medication like tramadol or norco - Elevate the affected extremity whenever possible, it help with the throbbing - If you have a splint or cast, please leave intact until your clinic follow up, please do not remove the splint prior to your clinic appointment If it is itchy please use over the counter benadryl for relief Another option is to take a hair baler and blow COOL air into the sp lint Finally you can take a wooden spoon and tap on the outside of the sp lint or cast Do not get your splint/cast wet, please wear a plastic bag over if b athing - Use your prescribed pain medications as directed. Do not drive or operate heKingspoke machinery while using narcotics - You will have a clinic appointment in about 2 weeks - Watch for signs of fever, chills, warmth, redness, or drainage from your incis ion. A slight amount is normal for a day or two following surgery. Seek medical attention for: loss of neurologic function, fever >101.5 F, increasing warmth, reddness, swelling, drainage at incision site, or anything that may concern you. Any questions or concerns you can call: [facility] [phone] during the weekday business hours. This will be the fastest way to get in touch with an orthopedist. Or [facility] , open 20/05. FOLLOW-UP APPOINTMENT: With Dr. Bolanos in 2 weeks. Maicol Jeremie was given discharge instructions. Antonio Maki MD Orthopaedic Surgery [employer]SERVATION SPECIALIST Associated attestation - Trudi Bolanos MD - 12/22/2019 5:51 PM [employer] Please see my dictated H+P / pre op note and post op notes within the dictated ' operation note' document. I have actively participated in clinical care and hav e examined and interviewed the patient and supervised procedures on the date of service to the patient and I agree with the attached residents entire note excep t above. documented in this encounter Discharge Instructions * Instructions* Yanet Clemente RN - 12/22/2019 General Discharge Instructions Procedure: Lower Extremity Procedures Dr. Trudi Bolanos 1. You may resume a regular diet. 2. Keep your incision clean and dry. Leave the surgical dressing in place until you are seen in clinic by Dr. Bolanos. When showering, cover the splint/ chacon rgical dressing with a plastic bag to prevent it from getting wet. 3. Weight bearing as advised with the use of crutches or a walker unless otherwi se directed. If in doubt, ask your physician. 4. Elevate the leg while sitting or lying down to provide comfort, support and d ecrease swelling. 5. Deep Vein Thrombosis Prophylaxis when resting/ sitting, flex and extend t he non-surgical foot, and if allowed may flex/ extend the knee, 10 times every 3 0 minutes to prevent blood clots. 6. Take prescribed pain medications around the clock for the 1st 24 hours. If p rovided, take antibiotics as prescribed until completely finished. 7. No driving until you no longer require pain medications and have been cleared by your physician. 8. Call Dr. Obregon office or seek emergency help if you develop signific ant pain, excessive bleeding or signs of infection (fever, redness, warmth, swel ling, chest pain, breathlessness, altered blood sugar levels, sweating, altered consciousness, or pain). 9. Check circulation on the surgical extremity every 2 hours for the 1st 24 demetra rs. Assess capillary refill by pressing the tip of the toenail to ensure proper blood flow. The tissue will turn a pale color while you apply pressure but the toe should return to a normal pink color within 3 seconds of pressure withdrawa l. Assess the color and temperature of the toes then compare these findings to the unaffected foot. Assess the ability to move the toes as well as any numbness or tingling. Changes or inconsistencies between extremities is a good indicator of reduced blood flow or nerve damage and should be reported to Dr. Bolanos s office immediately. Contact Information Trudi Bolanos MD ~ Daytime: [phone] After Hours: [facility] Access Line [phone] and ask to speak to the Nurse On-Kan l General Surgical Discharge Instructions: ? The medication that was used will be acting in your system for the next 24 demetra rs, so you might feel a little drowsy, with impaired judgment and/ or motor func tion. This feeling should wear off. Because the medication is still in your sy stem for the next 24 hours you SHOULD NOT: o Drive a car, operate machinery or power tools. o Drink any alcoholic beverages. o Make any important decisions or sign any legal documents. ? You should rest the remainder of the day and not engage in any physical activi ty. YOU ARE RESPONSIBLE FOR HAVING SOMEONE AT HOME WITH YOU DURING THE AFTERNOO N AND NIGHT IMMEDIATELY FOLLOWING YOUR SURGERY. Patients should cough and deep breathe every 2-4 hours while awake to avoid respiratory complications. ? Because the medications used could produce some residual nausea and vomiting a fter you go home, you should eat lightly today, starting with clear liquids (bro th, soft drinks, apple juice, jello) and toast or crackers, progressing to your normal diet as tolerated. If you get sick, wait a couple of hours and then begi n to eat. After 24 hours the nausea should be gone. If your nausea persists, c all your physician. ? You may experience some pain and your physician will advise you on what to rachell e for discomfort. This should be taken as directed. If the pain is not relieve d, contact your physician. You may also have a sore throat from the airway/ slade athing tube that was in place. You may use lozenges, throat spray (Chloraseptic ), or warm salt water gargles for symptomatic relief. ? If you are unable to urinate within five hours after your procedure, call your physician. ? The type of surgery performed will determine how much bleeding (if any) to exp ect. Normally, some spotting might occur. If your dressing pad become saturate d, notify your physician. Elevate surgical site, if applicable, to reduce swell ing and pain. ? Preventing a surgical site infection: o Dont smoke. It is best to quit at least 30 days before surgery, but quitti ng after surgery is also helpful. o If you are a diabetic, keep your blood sugar well controlled. WASH YOUR HANDS . o Keep your wound clean and remember to wash your hands before and after contact with the area. o Call your doctor if you have signs of infection: ? increased tenderness at the surgical site ? red streaks or increased redness of the area ? bad-smelling discharge from the incision ? fever of 101 or higher TOBACCO AVOIDANCE Exposure to tobacco either from smoking or from second hand (environmental)smoke or smokeless tobacco (snuff) is damaging to your health. This information is to encourage everyone to avoid tobacco exposure. It is recommended that you: If you smoke or use smokeless tobacco, we encourage you to quit. If you have already quit smoking, continue your good work! If you do not smoke or use smokeless tobacco, do not start. Avoid secondhand smoke. Additional Resources: You may want to contact these organizations for further information on jesse g and how to quit- [place] [employer] - http://www.lungusa.org/stop-smoking/ [place] [employer] - http://www.cancer.org/Healthy/StayAwayfromTobacco/i ndex [place] [employer] - http://www.heart.org/HEARTORG/GettingHealthy/Scar tSmoking/Quit-Smoking_[facility]_001085_SubHomePage.jsp documented in this encounter Plan of Treatment Care Team Description Date Type Specialty Trudi Bolanos MD [address] [place], [place] [id number] 12/28/2019 Office Visit Orthopedic Surgery Jt Bernal MD [address] [facility] [id number] [place] [address] 02/09/2020 Office Visit Pain Medicine Health Maintenance [...] ot Implanted Type Area Manufactur er 07/29/2021 [id number] / [id number] / [id number] Lead Vectris 1x8 Compact Trial Lead N/A: Back Medtronic Medtronic #[id number] - [id number] Implanted: Qty: 1 on 12/26/2017 by Jt Bernal MD at [facility] 12/06/2021 [id number] / [id number] / [id number] Lead Vectris 1x8 Compact Trial Lead Back Medtronic Medtronic #[id number] - Sna Implanted: Qty: 1 on 12/26/2017 by Jt Bernal MD at [facility] documented as of this encounter Procedures Comments Procedure Name Priority Date/Time Associated Diag nosis [place] TIME OR Routine 12/22/2019 Callus of foot (NON-REPORTABLE) 3:44 PM [employer] documented in this encounter Results * FL TIME OR (NON-REPORTABLE) (12/22/2019 3:44 PM LAND CONSERVATION SPECIALIST) Specimen Narrative Performed At These images do not require a Radiology diagnostic re port. PACS Performing Organization Address City/State/Zipcode Ph one Number PACS documented in this encounter Visit Diagnoses Diagnosis Callus of foot - Primary Corns and callosities documented in this encounter Administered Medications Action Date Dose Rate Site Medication Order MAR Action 12/22/2019 3:42 PM [employer]IST 20 mL bupivacaine (preserv free) (SENSORCAINE Given MPF) 0.25 % (2.5 mg/mL) injection PRN, Starting 12/22/19 at 1542, Unti l Discontinued, Routine, Intra-op 12/22/2019 4:44 PM LAND [employer]IST 25 mcg FENTanyl PF (SUBLIMAZE (PF)) injection Given 25 mcg 25 mcg, Slow IV Push, Q5MIN PRN, 4 doses, Starting 12/22/19 at 1619, Until Discontinued, Routine, Pain (scal e 4-6), PACU 25 mcg Given 12/22/2019 4:35 PM LAND CONSERVATION SPECIALIST 25 mcg Given 12/22/2019 4:26 PM LAND CONSERVATION SPECIALIST HYDROmorphone (DILAUDID) injection 0.2 mg 0.2 mg, Slow IV Push, Q5MIN PRN, 10 doses, Starting 12/22/19 at 1620, Until Discontinued, Routine, Pain (scal e 7-10), PACU, Use approved by (Faculty): PACU USE -ANESTHESIA SERVICE-HYDROMORPHONE INJECTIONS Action Date Dose Rate Site Medication Order MAR Action 12/22/2019 5:04 PM LAND [employer]SERVATION SPECIALIST 1 tablet HYDROcodone-acetaminophen (NORCO 5) Given 5-325 mg tablet 1 tablet 1 tablet, Oral, ONCE, 1 dose, 12/22/19 at 1630, Routine, PACU 12/22/2019 2:47 PM LAND [employer] SPECIALIST 1,000 mL 20 mL/hr lactated ringers IV infusion 1,000 mL New Bag at 20 mL/hr, 1,000 mL, IV Infusion, ONCE, 1 dose, 12/22/19 at 1430, Routine, DSU Pre-op documented in this encounter Insurance Type Payer Benefit Subscriber ID Effective Phone Address Plan / Dates Group [id number] [address] (Home) [place] [address] documented as of this encounter
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
--- OUTSIDE RECORDS SUMMARY | 2020-03-04 06:16 | XMS REPORT | Summary of Care ---
Author Author [facility] - Health Organization [facility] - Health Address Unknown Phone Unavailable Care Team Providers Care Director Cloud Transformation Name Role Phone Bebo Acevedo PCP Reason for Visit * Reason Comments Pain Encounter Details Care Team Description Date Type Department Nicki Bernal MD [id number] [place] [address] Chronic pain syndrome (Primary Dx); Complex regional pain syndrome type 1 of right lower extremity; Right foot pain; Adjustment disorder with mixed anxiety and depressed mood; Foot pain, right 11/10/2019 Office Visit [facility] [address] [place] [phone] Allergies Comments Active Allergy Reactions Severity Noted [...] Active ZOLMitriptan 5 mg nasal Use 1 [place] 6 Each 3 solution in each 8 [...] Added automatically from request for ines orantes [id number] Chronic pain syndrome 11/19/2017 Overview: Added automatically from request for ines orantes [id number] Neuroma digital nerve, right 11/19/2017 Overview: Added automatically from request for ines orantes [id number] Complex regional pain syndrome type 1 of both lower e xtremities 11/19/2017 Overview: Added automatically from request for ines orantes [id number] Migraine without status migrainosus, not intractable, unspecified migraine 11/19/2017 type Overview: Added automatically from request for ines orantes [id number] documented as of this encounter (statuses as [...] Comments Vital Sign 100/65 11/10/2019 3:14 PM RESISTOR COATER Blood Pressure 81 11/10/2019 3:14 PM RESISTOR COATER Pulse - - Temperature - - Respiratory Rate 97% 11/10/2019 3:14 PM RESISTOR COATER Oxygen Saturation - - Inhaled Oxygen Concentration 93.5 kg (206 lb 1.6 oz) 11/10/2019 3:14 PM RESISTOR COATER Weight 177.8 cm (5' 10") 11/10/2019 3:14 PM RESISTOR COATER Height 29.57 11/10/2019 3:14 PM RESISTOR COATER Body Mass Index documented in this encounter Progress Notes * Nicki Bernal MD - 11/10/2019 3:00 PM RESISTOR COATER I personally examined the patient on 11/10/2019 and agree with the resident note as written. I actively participated in the decision-making process. Please see the resident's note for additional details. Dr. Nicki Bernal Asst. Prof. Dept of Anesthesiology And Interventional Pain Medicine STOR COATER * Carolyn Croft MA - 11/10/2019 3:00 PM RESISTOR COATER 59 year old male has been identified by and name. Verbal consent has been o btained by patient to have an injection, as ordered by the provider. NDC (National Drug Code) 3197-9955-95. The site was cleaned with an alcohol [...] A PRESCRIBED EPI-PEN PLEASE USE IT NOW. STOR COATER * Mathew Irby MD - 11/10/2019 3:00 PM RESISTOR COATER PAIN MANAGEMENT CLINIC PROGRESS NOTE 08/11/2019 Chief [...] AT OTHER SITES/ DATES: Knee Hips/Troch: All Togolese sport Left 2017 PAIN INTERVENTIONAL PROCEDURES DONE [...] ZOLMitriptan 5 mg nasal solution Use 1 [place] in each nostril as needed for M [...] non opioids. Discussed nerve Stim options for detention pain treatment. Toradol inj 60 mg IM. Medication adjustments: - lyrica 100 mg TID -Celebrex 100mg BID -Lidocaine patch 12 hours on/off -Tizanidine 6 mg TID Rehab: Physical therapy Patient reports previous attempts at Physical therapy without relief Follow Up: RTC 3 months STOR COATER documented in this encounter Plan of Treatment Care Team Description Date Type Specialty Valeriy Bolanos MD [address] [place], [place] [id number] 12/22/2019 Hospital Surgery Encounter Valeriy Bolanos MD [address] [place] [address] [phone] METATARSAL HEAD RESECTION 12/22/2019 Surgery Surgery Valeriy Bolanos MD [address] [place], [place] [phone] 12/28/2019 Office Visit Orthopedic Surgery Nicki Bernal MD [address] [facility] [id number] [place] [address] 02/09/2020 Office Visit Pain Medicine [...] ot Implanted Type Area Manufactur er 07/29/2021 [id number] / [id number] / [id number] Lead Vectris 1x8 Compact Trial Lead N/A: Back MedSQLstream #[id number] - [id number] Implanted: Qty: 1 on 12/26/2017 by Nicki Bernal MD at [facility] 12/06/2021 [id number] / [id number] / [id number] Lead Vectris 1x8 Compact Trial Lead Back Medtronic Medtronic #[id number] - Sna Implanted: Qty: 1 on 12/26/2017 by Nicki Bernal MD at [facility] documented as of this encounter Results Not [...] Medication Order MAR Action 11/10/2019 4:49 PM RESISTOR COATER 60 mg Right Do rsogluteal-IM ketorolac (TORADOL) injection 60 mg Given 60 mg, Intramuscular, ONCE, 1 dose, 11/10/19 at 1730, Routine, Faculty membe r approving Restricted medication: NICKI BERNAL documented in this encounter Insurance Type Payer Benefit Subscriber ID Effective Phone Address Plan / Dates Group [id number] 2017-Teddy don documented as of this encounter
--- OUTSIDE RECORDS SUMMARY | 2020-03-04 06:16 | XMS REPORT | Summary of Care ---
Author Author [facility] - Health Organization [facility] - Health Address Unknown Phone Unavailable Care Team Providers Care Selector Packer Name Role Phone Bebo Acevedo PCP Reason for Visit * Reason Comments Rx Concern/Question Encounter Details Care Team Description Date Type Department Valeriy Bolanos MD [address] [place], [place] [address] Rx Concern/Question 12/09/2019 Telephone [facility] Surgery- [address] [place] [phone] Allergies Comments Active Allergy Reactions Severity Noted Date Metoclopramide Hcl Swelling 11/19/2017 Ondansetron Hcl (Pf) Rash 11/19/2017 documented as of this encounter (statuses as of 12/09/2019) Medications End Date Status Medication Sig Dispensed [...] Active ZOLMitriptan 5 mg nasal Use 1 [place] 6 Each 3 solution in each 8 [...] mouth 0 Recurrent falls while daily. walking documented as of this encounter (statuses as of 12/09/2019) Active Problems Problem Noted Date Capsulitis of metatarsophalangeal (MTP) joint of righ t foot 10/19/2019 Callus of foot 10/19/2019 Complex regional pain syndrome type 1 of right lower extremity 01/15/2018 Overview: Added automatically from request for [employer] [id number] Chronic pain syndrome 11/19/2017 Overview: Added automatically from request for [employer] [id number] Neuroma digital nerve, right 11/19/2017 Overview: Added automatically from request for chacon [employer] [id number] Complex regional pain syndrome type 1 of both lower e xtremities 11/19/2017 Overview: Added automatically from request for chacon [employer] [id number] Migraine without status migrainosus, not intractable, unspecified migraine 11/19/2017 type Overview: Added automatically from request for [employer] [id number] documented as of this encounter (statuses as of 12/09/2019) Social History Date Tobacco Use Types Packs/Day [...] Date Type Specialty Valeriy Bolanos MD [address] [place] [address] [phone] 12/22/2019 Hospital Surgery Encounter Wily Foster MD PHD [address] [id number] 12/22/2019 Anesthesia Surgery Event Valeriy Bolanos MD [address] [place], [place] [phone] METATARSAL HEAD RESECTION 12/22/2019 Surgery Surgery Valeriy Bolanos MD [address] [place], [place] [phone] 12/28/2019 Office Visit Orthopedic Surgery Jt Bernal MD [address] [address] 02/09/2020 Office Visit Pain Medicine Health [...] ot Implanted Type Area Manufactur er 07/29/2021 [id number] / [id number] / [id number] Lead Vectris 1x8 Compact Trial Lead N/A: Back Medtronic Medtronic #[id number] - [id number] Implanted: Qty: 1 on 12/26/2017 by Jt Bernal MD at [facility] 12/06/2021 [id number] / [id number] / [id number] Lead Vectris 1x8 Compact Trial Lead Back Medtronic Medtronic #[id number] - Sna Implanted: Qty: 1 on 12/26/2017 by Jt Bernal MD at [facility] documented as of this encounter Results Not on filedocumented in this encounter Insurance Type Payer Benefit Subscriber ID Effective Phone Address Plan / Dates Group [id number] 2017-Teddy don documented as of this encounter
--- OUTSIDE RECORDS SUMMARY | 2020-03-04 06:16 | XMS REPORT | Summary of Care ---
Author Author [facility] - Health Organization [facility] - Health Address Unknown Phone Unavailable Care Team Providers Care Alum Operator Name Role Phone Bebo Acevedo PCP Reason for Referral * Radiology Services (STAT) Referred By Contact Referred To Contact Status Reason Specialty Diagnoses / Procedures Benjamín Joe MD [address] [place] [address] New Request Diagnostic Diagnoses Radiology Recurrent falls while walking P rocedures XR KNEE 3 VW BILATERAL * MRI/CAT Scan (STAT) Referred By Contact Referred To Contact Status Reason Specialty Diagnoses / Procedures Benjamín Joe MD [address] [place] [address] New Request Diagnostic Diagnoses Radiology Recurrent falls while walking P rocedures CT HEAD WO CONTRAST Reason for Visit * Reason Comments Fall * Auth/Cert Referred By Contact Referred To Contact Status Reason Specialty Diagnoses / Procedures [facility] Emergency Dept [address] [place] [phone] Emergency Medicine Encounter Details Care Team Description Date Type Department Benjamín Joe MD [address] [place] [address] Recurrent falls while walking (Primary D x) 11/26/2019 Emergency [facility] [address] [place] [address] Allergies Comments Active Allergy Reactions Severity Noted Date Metoclopramide Hcl Swelling 11/19/2017 Ondansetron Hcl (Pf) Rash 11/19/2017 documented as of this encounter (statuses as of 11/26/2019) Medications End Date Status Medication Sig Dispensed [...] Active ZOLMitriptan 5 mg nasal Use 1 [place] 6 Each 3 solution in each 8 [...] as of this encounter (statuses as of 11/26/2019) Active Problems Problem Noted Date Capsulitis of metatarsophalangeal (MTP) joint of righ t foot 10/19/2019 Callus of foot 10/19/2019 Complex regional pain syndrome type 1 of right lower extremity 01/15/2018 Overview: Added automatically from request for ines orantes [id number] Chronic pain syndrome 11/19/2017 Overview: Added automatically from request for ines orantes [id number] Neuroma digital nerve, right 11/19/2017 Overview: Added automatically from request for ines orantes [id number] Complex regional pain syndrome type 1 of both lower e xtremities 11/19/2017 Overview: Added automatically from request for ines orantes [id number] Migraine without status migrainosus, not intractable, unspecified migraine 11/19/2017 type Overview: Added automatically from request for ines orantes [id number] documented as of this encounter (statuses as of 11/26/2019) Social History Date Tobacco Use Types Packs/Day [...] Signs Reading Time Taken Comments Vital Sign 102/62 11/26/2019 4:00 PM OFFICE MANAGER EXECUTIVE ASSISTANT Blood Pressure 79 11/26/2019 4:00 PM OFFICE MANAGER EXECUTIVE ASSISTANT Pulse 36.8 C (98.2 F) 11/26/2019 4:00 PM OFFICE MANAGER EXECUTIVE ASSISTANT Temperature 13 11/26/2019 4:00 PM OFFICE MANAGER EXECUTIVE ASSISTANT Respiratory Rate 97% 11/26/2019 4:00 PM OFFICE MANAGER EXECUTIVE ASSISTANT Oxygen Saturation - - Inhaled Oxygen Concentration 95.3 kg (210 lb) 11/26/2019 1:19 PM OFFICE MANAGER EXECUTIVE ASSISTANT Weight - - Height 30.13 11/10/2019 3:14 PM OFFICE MANAGER EXECUTIVE ASSISTANT Body Mass Index documented in this encounter Discharge Instructions * Attachments The following attachments cannot be sent through Care Everywhere.* Fall Due To Dizziness, Weakness, Or Loss Of Balance ([place]) * Falls, Preventing, Moving Safely Outside ([place]) * Falls, Preventing, Moving Safely Using a Cane or Walker ([place]) * Fall with Uncertain Cause ([place]) * Falls, Preventing, Staying Active ([place]) documented in this encounter Plan of Treatment Care Team Description Date Type Specialty Valeriy Bolanos MD [address] [place] [address] 12/22/2019 Hospital Surgery Encounter Valeriy Bolanos MD [address] [place] [address] METATARSAL HEAD RESECTION 12/22/2019 Surgery Surgery Valeriy Bolanos MD [address] [place], [place] [phone] 12/28/2019 Office Visit Orthopedic Surgery Jt Bernal MD [address] [facility] [id number] [place], [place] [address] 02/09/2020 Office Visit Pain Medicine Health Maintenance [...] ot Implanted Type Area Manufactur er 07/29/2021 [id number] / [id number] Lead Vectris 1x8 Compact Trial Lead N/A: Back Medtronic Medtronic #[id number] - [id number] Implanted: Qty: 1 on 12/26/2017 by Jt Bernal MD at [facility] 12/06/2021 [id number] / [id number] / [id number] Lead Vectris 1x8 Compact Trial Lead Back Medtronic Medtronic #[id number] - Sna Implanted: Qty: 1 on 12/26/2017 by Jt Bernal MD at [facility] documented as of this encounter Procedures Comments Procedure Name Priority Date/Time Associated Diag nosis EXTRA TUBE URINE CULTURE STAT 11/26/2019 2:38 PM OFFICE MANAGER EXECUTIVE ASSISTANT URINALYSIS STAT 11/26/2019 Recurrent falls while 2:38 PM OFFICE MANAGER EXECUTIVE ASSISTANT walking XR KNEE 3 VW BILATERAL STAT 11/26/2019 Recurre nt falls while 2:30 PM OFFICE MANAGER EXECUTIVE ASSISTANT walking CT HEAD WO CONTRAST STAT 11/26/2019 Recurrent falls while 2:16 PM OFFICE MANAGER EXECUTIVE ASSISTANT walking CBC WITH DIFFERENTIAL STAT 11/26/2019 Recurren t falls while 2:06 PM OFFICE MANAGER EXECUTIVE ASSISTANT walking CBC WITH DIFFERENTIAL STAT 11/26/2019 Recurren t falls while 2:06 PM OFFICE MANAGER EXECUTIVE ASSISTANT walking COMP. METABOLIC PANEL STAT 11/26/2019 Recurren t falls while ([id number]) 2:06 PM OFFICE MANAGER EXECUTIVE ASSISTANT walking EKG-12 LEAD Routine 11/26/2019 1:41 PM OFFICE MANAGER EXECUTIVE ASSISTANT documented in this encounter Results * EXTRA TUBE URINE CULTURE (11/26/2019 2:38 PM OFFICE MANAGER EXECUTIVE ASSISTANT) Specimen Urine - URINE, CLEAN CATCH Performing Organization Address [facility] [place] [place] Ph one Number [facility] CLIA: [id number], [address] [place], [place] [address] [facility] * URINALYSIS (11/26/2019 2:38 PM OFFICE MANAGER EXECUTIVE ASSISTANT) APPEARANCE Clear Clear [facility] COLOR Yellow Yellow [facility] PH 5.0 4.8 - 8.0 [facility] SP GRAVITY 1.013 1.003 - 1.030 [facility] GLU U QUAL Normal Normal [facility] BLOOD Negative Negative [facility] KETONES Negative Negative [facility] PROTEIN Negative Negative [facility] UROBILIN Normal Normal [facility] BILIRUBIN Negative Negative [facility] NITRITE Negative Negative [facility] LEUK LUMA Negative Negative [facility] RBC/HPF 1 0 - 3 HPF [facility] WBC/HPF 1 0 - 5 HPF [facility] BACTERIA Negative Negative [facility] MUCOUS Moderate (A) Negative LPF [facility] HYAL CAST 8 (H) <=2 LPF [facility] Specimen Urine - URINE, CLEAN CATCH Performing Organization Address City/[facility] [place] [place] Ph one Number [facility] CLIA: [id number], [address] [place], [place] [address] [facility] * XR KNEE 3 VW BILATERAL (11/26/2019 2:30 PM OFFICE MANAGER EXECUTIVE ASSISTANT) Specimen Impressions Performed At No acute bony abnormality. PACS/VR/DOSE Small bilateral joint effusions and mil d soft tissue swelling. Preliminary Report Dictated by Resident : Annalise Brian I, Daxa Cross MD., have reviewe d this study and agree with the above report. Narrative Performed At EXAM: XR KNEE 3 VW BILATERAL PACS/VR/DOSE HISTORY: fall, pain COMPARISON: None. FINDINGS: Radiographs of the bilateral knees demo nstrate no acute fractures or dislocations. Joint spaces are preserve d. Alignment is within normal limits. Vascular calcifications are not ed. Small bilateral joint effusions are seen with mild soft tissue swelling . Procedure Note [facility], Radiant Results Inft User - 11/26/2019 3:46 PM OFFICE MANAGER EXECUTIVE ASSISTANT EXAM: XR KNEE 3 VW BILATERAL HISTORY: fall, pain COMPARISON: None. FINDINGS: Radiographs of the bilateral knees demonstrate no acute fractures or dislocations. Joint spaces are preserved. Alignment is within normal limits. Vascular calcifications are noted. Small bilateral joint effusions are seen with mild soft tissue swelling. IMPRESSION No acute bony abnormality. Small bilateral joint effusions and mild soft tissue swelling. Preliminary Report Dictated by Resident: Annalise Brian I, Daxa Cross MD., have reviewed this study and agree with the above report. Performing Organization Address City/State[facility] Ph one Number PACS/VR/DOSE * CT HEAD WO CONTRAST (11/26/2019 2:16 PM OFFICE MANAGER EXECUTIVE ASSISTANT) Specimen Impressions Performed At No acute intracranial abnormality. PACS/VR/DOSE Preliminary Report Dictated by Resident : Annalise Brian I, Trevin Nowak MD., have review ed this study and agree with the above report. Narrative Performed At CT HEAD WITHOUT CONTRAST PACS/VR/DOSE HISTORY: Head trauma, headache COMPARISON: None. TECHNIQUE: Axial CT of the head was per formed and reconstructed at 5 mm intervals. Coronal and sagittal reforma tted images were generated. FINDINGS: The ventricles are normal in caliber an d configuration. No hydrocephalus, midline shift or pathological extra axi al fluid collection is present. The basal cisterns are unremarkable. No acute intracranial hemorrhage or mas s effect is present. The lind-white matter differentiation is preserved. No parenchymal attenuation abnormality is present. The calvarium and skull base are unrema rkable. The mastoid air cells and visualized paranasal air sinuses are cl ear. The right frontal sinus is aplastic. Procedure Note [facility], Radiant Results Inft User - 11/26/2019 3:53 PM OFFICE MANAGER EXECUTIVE ASSISTANT CT HEAD WITHOUT CONTRAST HISTORY: Head trauma, headache COMPARISON: None. TECHNIQUE: Axial CT of the head was performed and reconstructed at 5 mm intervals. Coronal and sagittal reformatted images were generated. FINDINGS: The ventricles are normal in caliber and configuration. No hydrocephalus, midline shift or pathological extra axial fluid collection is present. The basal cisterns are unremarkable. No acute intracranial hemorrhage or mass effect is present. The lind-white matter differentiation is preserved. No parenchymal attenuation abnormality is present. The calvarium and skull base are unremarkable. The mastoid air cells and visualized paranasal air sinuses are clear. The right frontal sinus is aplastic. IMPRESSION No acute intracranial abnormality. Preliminary Report Dictated by Resident: Annalise Brian I, Trevin Nowak MD., have reviewed this study and agree with the above report. Performing Organization Address [facility] Ph one Number PACS/VR/DOSE * CBC WITH DIFFERENTIAL (11/26/2019 2:06 PM OFFICE MANAGER EXECUTIVE ASSISTANT) WBC 4.07 (L) 4.20 - 10.70 [facility] 10*3/L [facility] RBC 4.80 4.26 - 5.52 10*6/L [facility] HGB 13.9 12.2 - 16.4 g/dL [facility] HCT 41.3 38.4 - 49.3 % [facility] MCV 86.0 81.7 - 95.6 fL [facility] MCH 29.0 26.1 - 32.7 pg [facility] MCHC 33.7 31.2 - 35.0 g/dL [facility] RDW-SD 39.5 38.5 - 51.6 fL [facility] RDW-CV 12.7 12.1 - 15.4 % [facility] PLT 150 150 - 328 10*3/L [facility] MPV 10.7 9.8 - 13.0 fL [facility] NRBC/100 WBC 0.0 0.0 - 10.0 /100 WBCs [facility] NRBC x10^3 <0.01 10*3/L [facility] GRAN MAT (NEUT) 56.6 % [facility] Y % [facility] IMM GRAN % 0.20 % [facility] LYMPH % 31.4 % [facility] MONO % 9.1 % [facility] EOS % 2.0 % [facility] BASO % 0.7 % [facility] GRAN MAT 2.30 1.99 - 6.95 10*3/uL [facility] x10^3(ANC) [facility] IMM GRAN x10^3 <0.03 0.00 - 0.06 10*3/uL [facility] LYMPH x10^3 1.28 1.09 - 3.23 10*3/uL [facility] MONO x10^3 0.37 0.36 - 1.02 10*3/uL [facility] EOS x10^3 0.08 0.06 - 0.53 10*3/uL [facility] BASO x10^3 0.03 0.01 - 0.09 10*3/uL [facility] Specimen Blood - ARM, RIGHT Performing Organization Address City/State/Zipcode Ph one Number [facility] CLIA: [id number], [address] [place], [place] [address] [facility] * COMP. METABOLIC PANEL (43813) (11/26/2019 2:06 PM OFFICE MANAGER EXECUTIVE ASSISTANT) NA 136 135 - 145 mmol/L [facility] K 4.4 3.5 - 5.0 mmol/L [facility] CL 101 98 - 108 mmol/L [facility] CO2 TOTAL 26 23 - 31 mmol/L [facility] AGAP 9 2 - 16 [facility] BUN 12 7 - 23 mg/dL [facility] GLUCOSE 102 70 - 110 mg/dL [facility] CREATININE 0.91 0.60 - 1.25 mg/dL [facility] TOTAL BILI 0.5 0.1 - 1.1 mg/dL [facility] CALCIUM 8.9 8.6 - 10.6 mg/dL [facility] T PROTEIN 6.7 6.3 - 8.2 g/dL [facility] ALBUMIN 3.6 3.5 - 5.0 g/dL [facility] ALK PHOS 100 34 - 122 U/L [facility] ALTv 18 5 - 50 U/L [facility] AST(SGOT) 39 13 - 40 U/L [facility] eGFR 85.6 mL/min/1.73m2 [facility] eGFR 103.7 mL/min/1.73m2 [facility] Specimen Blood - ARM, RIGHT Narrative Performed At Association of Glomerular Filtration Rate (GFR) and S taging of Kidney Disease* [facility] + + +------ + [facility] | GFR (mL/min/1.73 m2) | With Kidney Damage | [facility] Kidney Damage COOK + + -------+ + | >90 | S tage one | Normal + + -------+ + | 60-89 | St age two | Decreased GFR + + -------+ + | 30-59 | St age three | Stage three + + -------+ + | 15-29 | St age four | Stage four + + -------+ + | <15 (or dialysis) | Stage fi ve | Stage five + + -------+ + *Each stage assumes the associated GFR level has been in effect for at least three months. Stages 1 to 5, with or without kidney disease, indicate chronic kidney disease. Notes: Determination of stages one and two (with eGFR >59mL/min/1.73 m2) requires estimation of kidney damage fo r at least three months as defined by structural or functional abnormalities of the kidney, manifested by either: Pathological abnormalities or Markers o f kidney damage (including abnormalities in the composition of the blood or urin e or abnormalities in imaging tests). Performing Organization Address City/State/Zipcode Ph one Number [facility] CLIA: [id number], [address] [place], [place] [address] [facility] documented in this encounter Visit Diagnoses Diagnosis Recurrent falls while walking - Primary documented in this encounter Administered Medications Action Date Dose Rate Site Medication Order MAR Action 11/26/2019 2:43 PM OFFICE MANAGER EXECUTIVE ASSISTANT 1 tablet HYDROcodone-acetaminophen (NORCO 5) Given 5-325 mg tablet 1 tablet 1 tablet, Oral, ONCE, 1 dose, Sharri 11/26/19 at 1445, TED documented in this encounter Insurance Type Payer Benefit Subscriber ID Effective Phone Address Plan / Dates Group [id number] 2017-[address] [place] [address] (Home) [place] [address] documented as of this encounter"
--- OUTSIDE RECORDS SUMMARY | 2020-03-04 06:16 | XMS REPORT | Summary of Care ---
Author Author [facility] - Health Organization [facility] - Health Address Unknown Phone Unavailable Care Team Providers Care [employer] Wireman Name Role Phone Bebo Acevedo PCP Reason for Referral * Radiology Services (Routine) Referred By Contact Referred To Contact Status Reason Specialty Diagnoses / Procedures Valeriy Bolanos MD [address] [place] [address] New Request Diagnostic Diagnoses Radiology Right foot pain P rocedures XR FOOT 3+ VW RIGHT Reason for Visit * Reason Comments Pain * (Routine) Referred By Contact Referred To Contact Status Reason Specialty Diagnoses / Procedures Jt Bernal MD [address] [facility] [id number] [place] [address] Valeriy Bolanos MD [address] [place] [address] Authorized Orthopedic Diagnoses Surgery Chronic pain syndrome Neuroma digital nerve, right Complex regional pain syndrome type 1 of right lower extremity Right foot pain P rocedures CONSULT/REFERRAL ORTHOPAEDIC SURGERY Encounter Details Care Team Description Date Type Department Valeriy Bolanos MD [address] [place], [place] [id number] Right foot pain (Primary Dx) 12/28/2019 Office Visit [facility] edic Surgery- [address] [place] [address] Allergies Comments Active Allergy Reactions Severity Noted [...] Overview: Added automatically from request for [employer] [id number] Chronic pain syndrome 11/19/2017 Overview: Added automatically from request for [employer] [id number] Neuroma digital nerve, right 11/19/2017 Overview: Added automatically from request for [employer]acon [employer] [id number] Complex regional pain syndrome type 1 of both lower e xtremities 11/19/2017 Overview: [facility] [id number] Migraine without status migrainosus, not intractable, unspecified migraine 11/19/2017 type Overview: Added automatically from request for chacon rolanda [id number] documented as of this encounter (statuses as [...] Comments Vital Sign 102/54 12/28/2019 1:48 PM MAINTENANCE JOURNEYMAN Blood Pressure 80 12/28/2019 1:48 PM MAINTENANCE JOURNEYMAN Pulse 36.6 C (97.8 F) 12/28/2019 1:48 PM MAINTENANCE JOURNEYMAN Temperature - - Respiratory Rate - - Oxygen Saturation - - Inhaled Oxygen Concentration 93 kg (205 lb) 12/28/2019 1:48 PM MAINTENANCE JOURNEYMAN Weight 177.8 cm (5' 10") 12/28/2019 1:48 PM MAINTENANCE JOURNEYMAN Height 29.41 12/28/2019 1:48 PM MAINTENANCE JOURNEYMAN Body Mass Index documented in this encounter Progress Notes * Antonio Maki MD - 12/28/2019 1:50 PM MAINTENANCE JOURNEYMAN Orthopedic Clinic Note 12/28/2019 15:03 CC: Surgery [...] Right 05/20/2018 Surgeon: Valeriy Bolanos MD; Location: [facility] METATARSAL HEAD RESECTION (SHX) Right 12/22/2019 [...] RLE Post op shoe Follow-up 1 month TENANCE JOURNEYMAN documented in this encounter Plan of Treatment Care Team Description Date Type Medical Staff DirectorJt Bernal MD [id number] [place], [place] [address] 02/09/2020 Office Visit Pain Medicine Date/Time Name Type Priority Associated Diag noses 12/28/2019 2:23 PM MAINTENANCE JOURNEYMAN XR FOOT 3+ VW RIGHT IMAGING Routine [...] ot Implanted Type Area Manufactur er 07/29/2021 [id number] / [id number] / [id number] Lead Vectris 1x8 Compact Trial Lead N/A: Back Medtronic Medtronic #[id number] - [id number] Implanted: Qty: 1 on 12/26/2017 by Jt Bernal MD at [facility] 12/06/2021 [id number] / [id number] / [id number] Lead Vectris 1x8 Compact Trial Lead Back Medtronic Medtronic #[id number] - Sna Implanted: Qty: 1 on 12/26/2017 by Jt Bernal MD at [facility] documented as of this encounter Results Not on filedocumented in this encounter Visit Diagnoses Diagnosis Right foot pain - Primary Pain in limb documented in this encounter Insurance Type Payer Benefit Subscriber ID Effective Phone Address Plan / Dates Group [id number] 2017-[address] (Home) [place] [address] documented as of this encounter
--- OUTSIDE RECORDS SUMMARY | 2020-03-04 06:16 | XMS REPORT | Summary of Care ---
Author Author [facility] - Health Organization [facility] - Health Address Unknown Phone Unavailable Care Team Providers Care Handle Attacher Name Role Phone Bebo Acevedo PCP Reason for Visit * Reason Comments Assessment Encounter Details Care Team Description Date Type Department Valeriy Bolanos MD [address] [place], [place] [address] Assessment 12/25/2019 Telephone [facility] Surgery[address] [place] [phone] Allergies Comments Active Allergy Reactions Severity Noted Date Metoclopramide Hcl Swelling High 11/19/2017 Ondansetron Hcl (Pf) Rash High 8 documented as of this encounter (statuses as of 12/25/2019) Medications End Date Status Medication Sig Dispensed [...] as of this encounter (statuses as of 12/25/2019) Active Problems Problem Noted Date Capsulitis of metatarsophalangeal (MTP) joint of righ t foot 10/19/2019 Callus of foot 10/19/2019 Complex regional pain syndrome type 1 of right lower extremity 01/15/2018 Overview: Added automatically from request for ines orantes [id number] Chronic pain syndrome 11/19/2017 Overview: Added automatically from request for ines orantes [id number] Neuroma digital nerve, right 11/19/2017 Overview: Added automatically from request for ines orantes [id number] Complex regional pain syndrome type 1 of both lower e xtremities 11/19/2017 Overview: Added automatically from request for ines orantes [id number] Migraine without status migrainosus, not intractable, unspecified migraine 11/19/2017 type Overview: Added automatically from request for ines orantes [id number] documented as of this encounter (statuses as of 12/25/2019) Social History Date Tobacco Use Types Packs/Day [...] Date Type Specialty Valeriy Bolanos MD [address] [place] [address] 12/28/2019 Office Visit Orthopedic Surgery Jt Bernal MD [address] [facility] [id number] [place] [address] 02/09/2020 Office Visit Pain Medicine [...] ot Implanted Type Area Manufactur er 07/29/2021 [id number] / [id number] / [id number] Lead Vectris 1x8 Compact Trial Lead N/A: Back Medtronic Medtronic #[id number] - [id number] Implanted: Qty: 1 on 12/26/2017 by Jt Bernal MD at [facility] 12/06/2021 [id number] / [id number] / [id number] Lead Vectris 1x8 Compact Trial Lead Back Medtronic Medtronic #[id number] - Sna Implanted: Qty: 1 on 12/26/2017 by Jt Bernal MD at [facility] documented as of this encounter Results Not on filedocumented in this encounter Insurance Type Payer Benefit Subscriber ID Effective Phone Address Plan / Dates Group [id number] 2017-P [employer] documented as of this encounter
--- OUTSIDE RECORDS SUMMARY | 2020-03-04 06:16 | XMS REPORT | Summary of Care ---
Author Author [facility] - Health Organization [facility] - Health Address Unknown Phone Unavailable Care Team Providers Care Breaker Operator Name Role Phone AcevedoBebo PCP Reason for Visit * Reason Comments POST-OP Encounter Details Care Team Description Date Type Department Curtis Bustamante, RN [address] [place] [address] POST-OP 12/22/2019 Nurse Triage [facility] [address] [place] [phone] Allergies Comments Active Allergy Reactions Severity Noted [...] Added automatically from request for ines orantes [id number] Chronic pain syndrome 11/19/2017 Overview: Added automatically from request for ines orantes [id number] Neuroma digital nerve, right 11/19/2017 Overview: Added automatically from request for ines orantes [id number] Complex regional pain syndrome type 1 of both lower e xtremities 11/19/2017 Overview: Added automatically from request for ines orantes [id number] Migraine without status migrainosus, not intractable, unspecified migraine 11/19/2017 type Overview: Added automatically from request for ines orantes [id number] documented as of this encounter (statuses as [...] Date Type Specialty Valeriy Bolanos MD [address] [place], [place] [phone] 12/28/2019 Office Visit Orthopedic Surgery Jt Bernal MD 301 [facility] [id number] [place], [place] [phone] 02/09/2020 Office Visit Pain Medicine Health Maintenance [...] ot Implanted Type Area Manufactur er 07/29/2021 [id number] / [id number] / [id number] Lead Vectris 1x8 Compact Trial Lead N/A: Back Medtronic Medtronic #[id number] - [id number] Implanted: Qty: 1 on 12/26/2017 by Jt Bernal MD at [facility] 12/06/2021 [id number] / [id number] / [id number] Lead Vectris 1x8 Compact Trial Lead Back Medtronic Medtronic #[id number] - Sna Implanted: Qty: 1 on 12/26/2017 by Jt Bernal MD at [facility] documented as of this encounter Results Not on filedocumented in this encounter Insurance Type Payer Benefit Subscriber ID Effective Phone Address Plan / Dates Group [id number] 2017-Teddy don documented as of this encounter
--- OUTSIDE RECORDS SUMMARY | 2020-03-04 06:16 | XMS REPORT | Summary of Care ---
Author Author [facility] - Health Organization [facility] - Health Address Unknown Phone Unavailable Care Team Providers Care Groundskeeping Maintenance Name Role Phone Bebo Acevedo PCP Reason for Referral * Radiology Services (Routine) Referred By Contact Referred To Contact Status Reason Specialty Diagnoses / Procedures Valeriy Bolanos MD [address] [place] [address] New Request Diagnostic Diagnoses Radiology Right foot pain P rocedures XR FOOT 3+ VW RIGHT Reason for Visit * Radiology Services (Routine) Referred By Contact Referred To Contact Status Reason Specialty Diagnoses / Procedures Valeriy Bolanos MD [address] [place] [address] New Request Diagnostic Diagnoses Radiology Right foot pain P rocedures XR FOOT 3+ VW RIGHT Encounter Details Care Team Description Date Type Department Valeriy Bolanos MD [address] [place] [address] Arrived 12/28/2019 [facility] Encounter [facility] [address] [place] [address] Allergies Comments Active Allergy Reactions Severity Noted Date Metoclopramide Hcl Swelling High 11/19/2017 Ondansetron Hcl (Pf) Rash High 8 documented as of this encounter (statuses as of 12/29/2019) Medications End Date Status Medication Sig Dispensed [...] as of this encounter (statuses as of 12/29/2019) Active Problems Problem Noted Date Capsulitis of metatarsophalangeal (MTP) joint of righ t foot 10/19/2019 Callus of foot 10/19/2019 Complex regional pain syndrome type 1 of right lower extremity 01/15/2018 Overview: Added automatically from request for chacon koreyery [id number] Chronic pain syndrome 11/19/2017 Overview: Added automatically from request for chacon rolanda [id number] Neuroma digital nerve, right 11/19/2017 Overview: Added automatically from request for chacon rolanda [id number] Complex regional pain syndrome type 1 of both lower e xtremities 11/19/2017 Overview: Added automatically from request for chacon rolanda [id number] Migraine without status migrainosus, not intractable, unspecified migraine 11/19/2017 type Overview: Added automatically from [facility] [id number] documented as of this encounter (statuses as of 12/29/2019) Social History Date Tobacco Use Types Packs/Day [...] Date Type Specialty Valeriy Bolanos MD [address] [place] [address] [phone] 02/01/2020 Office Visit Orthopedic Surgery Jt Bernal MD [address] [facility] [id number] [place] [address] [phone] 02/09/2020 Office Visit Pain Medicine Health Maintenance [...] ot Implanted Type Area Manufactur er 07/29/2021 [id number] / [id number] / [id number] Lead Vectris 1x8 Compact Trial Lead N/A: Back Medtronic Medtronic #[id number] - [id number] Implanted: Qty: 1 on 12/26/2017 by Jt Bernal MD at [facility] 12/06/2021 [id number] / [id number] / [id number] Lead Vectris 1x8 Compact Trial Lead Back Medtronic Medtronic #[id number] - Sna Implanted: Qty: 1 on 12/26/2017 by Jt Bernal MD at [facility] documented as of this encounter Procedures Comments Procedure Name Priority Date/Time Associated Diag nosis XR FOOT 3+ VW RIGHT Routine 12/28/2019 Right edgar t pain 2:23 PM BANK WORKER documented in this encounter Results * XR FOOT 3+ VW RIGHT (12/28/2019 2:23 PM BANK WORKER) Specimen Impressions Performed At Second through fourth metatarsal head resection with residual osseous PACS/VR/DOSE debris at the fourth MTP joint. Stable first metatarsal osteotomy gopi mares. Narrative Performed At EXAM: PACS/VR/DOSE XR FOOT 3+ VW RIGHT HISTORY: surgery COMPARISON: September 2019 FINDINGS: Imaging of the foot demonstrates resect ion of the second through fourth metatarsal heads with residual osseous debris along the lateral fourth MTP joint. Osteotomy changes with screw fix ation are seen about the distal first metatarsal. Forefoot soft tissue swelling is seen. Overlying dressing is in place. Procedure Note [facility], Radiant Results Inft User - 12/28/2019 4:20 PM BANK WORKER EXAM: XR FOOT 3+ VW RIGHT HISTORY: surgery COMPARISON: September 2019 FINDINGS: Imaging of the foot demonstrates resection of the second through fourth metatarsal heads with residual osseous debris along the lateral fourth MTP joint. Osteotomy changes with screw fixation are seen about the distal first metatarsal. Forefoot soft tissue swelling is seen. Overlying dressing is in place. IMPRESSION Second through fourth metatarsal head resection with residual osseous debris at the fourth MTP joint. Stable first metatarsal osteotomy changes. Performing Organization Address City/State/[facility] Ph one Number PACS/VR/DOSE documented in this encounter Visit Diagnoses Diagnosis Right foot pain Pain in limb documented in this encounter Insurance Type Payer Benefit Subscriber ID Effective Phone Address Plan / Dates Group [id number] 2017-P [facility] documented as of this encounter
--- OUTSIDE RECORDS SUMMARY | 2020-03-04 06:16 | XMS REPORT | Summary of Care ---
Author Author [facility] - Health Organization [facility] - Health Address Unknown Phone Unavailable Care Team Providers Care Automotive Glass Technician Name Role Phone Bebo Acevedo PCP Encounter Details Care Team Description Date Type Department Bebo Acevedo [address] [place], [place] [address] 10/19/2019 Letter (Out) [facility] Surgery[address] [place] [phone] Allergies Comments Active Allergy Reactions Severity Noted Date Metoclopramide Hcl Swelling High 11/19/2017 Ondansetron Hcl (Pf) Rash High 8 documented as of this encounter (statuses as of 12/30/2019) Medications End Date Status Medication Sig Dispensed [...] as of this encounter (statuses as of 12/30/2019) Active Problems Problem Noted Date Capsulitis of metatarsophalangeal (MTP) joint of righ t foot 10/19/2019 Callus of foot 10/19/2019 Complex regional pain syndrome type 1 of right lower extremity 01/15/2018 Overview: Added automatically from request for Skout [id number] Chronic pain syndrome 11/19/2017 Overview: Added automatically from request for Skout [id number] Neuroma digital nerve, right 11/19/2017 Overview: Added automatically from request for chacon SmartFleet [id number] Complex regional pain syndrome type 1 of both lower e xtremities 11/19/2017 Overview: Added automatically from request for Skout [id number] Migraine without status migrainosus, not intractable, unspecified migraine 11/19/2017 type Overview: Added automatically from request for chacon SmartFleet [id number] documented as of this encounter (statuses as of 12/30/2019) Social History Date Tobacco Use Types Packs/Day [...] Date Type Specialty Valeriy Bolanos MD [address] [place] [address] [phone] 02/01/2020 Office Visit Orthopedic Surgery Jt Bernal MD [id number] [place] [address] [phone] 02/09/2020 Office Visit Pain Medicine Health Maintenance [...] ot Implanted Type Area Manufactur er 07/29/2021 [id number] / [id number] / [id number] Lead Vectris 1x8 Compact Trial Lead N/A: Back Medtronic Medtronic #[id number] - [id number] Implanted: Qty: 1 on 12/26/2017 by Jt Bernal MD at [facility] 12/06/2021 [id number] / NA / [id number] Lead Vectris 1x8 Compact Trial Lead Back Medtronic Medtronic #[id number] - Sna Implanted: Qty: 1 on 12/26/2017 by Jt Bernal MD at [facility] documented as of this encounter Results Not on filedocumented in this encounter Insurance Type Payer Benefit Subscriber ID Effective Phone Address Plan / Dates Group [id number] 2017-[place] documented as of this encounter
--- OUTSIDE RECORDS SUMMARY | 2020-03-04 06:16 | XMS REPORT | Summary of Care ---
Author Author [facility] - Health Organization [facility] - Health Address Unknown Phone Unavailable Care Team Providers Care Hydraulic Billet Maker Name Role Phone eBbo Acevedo PCP Reason for Visit * Reason Comments Assessment Encounter Details Care Team Description Date Type Department Valeriy Bolanos MD [address] [place] [address] Assessment 12/23/2019 Telephone [facility] Surgery[address], [facility] [address] [place] [address] Allergies Comments Active Allergy Reactions Severity Noted Date Metoclopramide Hcl Swelling High 11/19/2017 Ondansetron Hcl (Pf) Rash High 8 documented as of this encounter (statuses as of 12/23/2019) Medications End Date Status Medication Sig Dispensed [...] as of this encounter (statuses as of 12/23/2019) Active Problems Problem Noted Date Capsulitis of metatarsophalangeal (MTP) joint of righ t foot 10/19/2019 Callus of foot 10/19/2019 Complex regional pain syndrome type 1 of right lower extremity 01/15/2018 Overview: Added automatically from request for ines orantes [id number] Chronic pain syndrome 11/19/2017 Overview: Added automatically from request for ines orantes [id number] Neuroma digital nerve, right 11/19/2017 Overview: Added automatically from request for ines orantes [id number] Complex regional pain syndrome type 1 of both lower e xtremities 11/19/2017 Overview: Added automatically from request for ines orantes [id number] Migraine without status migrainosus, not intractable, unspecified migraine 11/19/2017 type Overview: Added automatically from request for ines orantes [id number] documented as of this encounter (statuses as of 12/23/2019) Social History Date Tobacco Use Types Packs/Day [...] Date Type Specialty Valeriy Bolanos MD [address] [place] [address] 12/28/2019 Office Visit Orthopedic Surgery Jt Bernal MD 301 [facility] [id number] [place] [address] 02/09/2020 Office Visit Pain Medicine [...] ot Implanted Type Area Manufactur er 07/29/2021 [id number] / [id number] / [id number] Lead Vectris 1x8 Compact Trial Lead N/A: Back Medtronic Medtronic #[id number] - [id number] Implanted: Qty: 1 on 12/26/2017 by Jt Bernal MD at [facility] AT [facility] 12/06/2021 [id number] / NA / [id number] Lead Vectris 1x8 Compact Trial Lead Back Medtronic Medtronic #[id number] - Sna Implanted: Qty: 1 on 12/26/2017 by Jt Bernal MD at [facility] documented as of this encounter Results Not on filedocumented in this encounter Insurance Type Payer Benefit Subscriber ID Effective Phone Address Plan / Dates Group [id number] 2017-P [employer] documented as of this encounter
--- OUTSIDE RECORDS SUMMARY | 2020-03-04 06:16 | XMS REPORT | Summary of Care ---
Author Author [facility] - Health Organization [facility] - Health Address Unknown Phone Unavailable Care Team Providers Care Sanitation Laborer Name Role Phone Bebo Acevedo PCP Reason for Visit * Reason Comments Appointment Encounter Details Care Team Description Date Type Department Valeriy Bolanos MD [address] [place] [address] Appointment 11/12/2019 Telephone [facility] [address], [address] [place] [address] Allergies Comments Active Allergy Reactions Severity Noted Date Metoclopramide Hcl Swelling 11/19/2017 Ondansetron Hcl (Pf) Rash 11/19/2017 documented as of this encounter (statuses as of 11/13/2019) Medications End Date Status Medication Sig Dispensed [...] Active ZOLMitriptan 5 mg nasal Use 1 [place] 6 Each 3 solution in each 8 [...] and depressed mood, Foot pain, right Active tiZANidine 6 mg Take 1 90 capsule 2 capsuleIndications: capsule by 0 Chronic pain syndrome, mouth 3 Complex regional pain (three) times syndrome type 1 of right daily. lower extremity, Right foot pain, Adjustment disorder with mixed anxiety and depressed mood, Foot pain, right documented as of this encounter (statuses as of 11/13/2019) Active Problems Problem Noted Date Capsulitis of metatarsophalangeal (MTP) joint of righ t foot 10/19/2019 Callus of foot 10/19/2019 Complex regional pain syndrome type 1 of right lower extremity 01/15/2018 Overview: Added automatically from request for ines orantes [id number] Chronic pain syndrome 11/19/2017 Overview: Added automatically from request for ines orantes [id number] Neuroma digital nerve, right 11/19/2017 Overview: Added automatically from request for ines orantes [id number] Complex regional pain syndrome type 1 of both lower e xtremities 11/19/2017 Overview: Added automatically from request for chacon rolanda [id number] Migraine without status migrainosus, not intractable, unspecified migraine 11/19/2017 type Overview: Added automatically from request for ines orantes [id number] documented as of this encounter (statuses as of 11/13/2019) Social History Date Tobacco Use Types Packs/Day [...] Date Type Specialty Valeriy Bolanos MD [address] [place] [address] 12/02/2019 Hospital Surgery Encounter Valeriy Bolanos MD [address] [place] [address] METATARSAL HEAD RESECTION 12/02/2019 Surgery Surgery Valeriy Bolanos MD [address] [place] [address] 12/14/2019 Office Visit Orthopedic Surgery Jt Bernal MD 301 [facility] [id number] [place] [address] 02/09/2020 Office Visit Pain Medicine [...] ot Implanted Type Area Manufactur er 07/29/2021 [id number] / [id number] / [id number] Lead Vectris 1x8 Compact Trial Lead N/A: Back Medtronic Medtronic #[id number] - [id number] Implanted: Qty: 1 on 12/26/2017 by Jt Bernal MD at [facility] 12/06/2021 [id number] / NA / [id number] Lead Vectris 1x8 Compact Trial Lead Back Medtronic Medtronic #[id number] - Sna Implanted: Qty: 1 on 12/26/2017 by Jt Bernal MD at [facility] documented as of this encounter Results Not on filedocumented in this encounter Insurance Type Payer Benefit Subscriber ID Effective Phone Address Plan / Dates Group [id number] 2017-P [employer] documented as of this encounter
--- OUTSIDE RECORDS SUMMARY | 2020-03-04 06:16 | XMS REPORT | Summary of Care ---
Author Author [facility] - Health Organization [facility] - Health Address Unknown Phone Unavailable Care Team Providers Care Heel Gouger Name Role Phone Bebo Acevedo PCP Reason for Visit * Auth/Cert Referred By Contact Referred To Contact Status Reason Specialty Diagnoses / Procedures Vl Preop [address] [place] [address] Surgery Diagnoses right foot pain P rocedures [place] CLOSED RX TAR-METATAR DISLOC,ANESTH METATARSAL HEAD RESECTION Encounter Details Care Team Description Date Type Department Bianca Levine MD 301 [facility] [id number] [place], [place] [address] Wily Foster MD PHD 301 [facility] [id number] [place] [address] [phone] 12/22/2019 Anesthesia [facility] [address] [place] [phone] Allergies Comments Active Allergy Reactions Severity Noted [...] 800 mg 0 08/11 by mouth. 9 documented as of this encounter (statuses as of 12/22/2019) Active Problems Problem Noted Date Capsulitis of metatarsophalangeal (MTP) joint of righ t foot 10/19/2019 Callus of foot 10/19/2019 Complex regional pain syndrome type 1 of right lower extremity 01/15/2018 Overview: Added automatically from request for ines orantes [id number] Chronic pain syndrome 11/19/2017 Overview: Added automatically from request for ines orantes [id number] Neuroma digital nerve, right 11/19/2017 Overview: Added automatically from request for ines orantes [id number] Complex regional pain syndrome type 1 of both lower e xtremities 11/19/2017 Overview: Added automatically from request for ines orantes [id number] Migraine without status migrainosus, not intractable, unspecified migraine 11/19/2017 type Overview: Added automatically from request for ines orantes [id number] documented as of this encounter (statuses as [...] Date Type Specialty Valeriy Bolanos MD [address] [place], [place] [phone] 12/28/2019 Office Visit Orthopedic Surgery Jt Bernal MD 301 [facility] [id number] [place], [place] [phone] 02/09/2020 Office Visit Pain Medicine Health Maintenance [...] ot Implanted Type Area Manufactur er 07/29/2021 [id number] / [id number] / [id number] Lead Vectris 1x8 Compact Trial Lead N/A: Back Medtronic Medtronic #[id number] - [id number] Implanted: Qty: 1 on 12/26/2017 by Jt Bernal MD at [facility] 12/06/2021 [id number] / NA / [id number] Lead Vectris 1x8 Compact Trial Lead Back Medtronic Medtronic #[id number] - Sna Implanted: Qty: 1 on 12/26/2017 by Jt Bernal MD at [facility] documented as of this encounter Procedures Comments Procedure Name Priority Date/Time Associated Diag nosis INTUBATION Routine 12/22/2019 3:46 PM OPTOMETRIC TECHNOLOGIST documented in this encounter Results * Intubation (12/22/2019 3:46 PM OPTOMETRIC TECHNOLOGIST) Narrative Performed At Hakeem Mancera CRNA 0 3:47 PM Intubation Date/Time: 12/22/2019 3:18 PM Urgency: elective General Information and Staff Patient location during procedure: OR Resident/SPLINE ROLLING MACHINE JOB SETTER: Hakeem Mancera CRNA Performed: resident/SPLINE ROLLING MACHINE JOB SETTER Indications and Patient Condition Indications for airway management: anes thesia Spontaneous ventilation: present Sedation level: minimal Preoxygenated: yes Patient position: sniffing MILS maintained throughout Mask difficulty assessment: 1 - vent by mask Final Airway Details Final airway type: supraglottic airway Successful airway: classic Size 5 Airway Seal Pressure (cm H2O): 20 Number of attempts at approach: 1 Additional Comments Lips and teeth as per pre-op documented in this encounter Administered Medications Action Date Dose Rate Site Medication Order MAR Action 12/22/2019 3:21 PM OPTOMETRIC TECHNOLOGIST 2 g ceFAZolin (ANCEF) injection Given ONCE INTRA PROCEDURE, Starting 12/22/19 at 1521, Until 12/22/19 at 1601, TED, Intra-op 12/22/2019 3:25 PM OPTOMETRIC TECHNOLOGIST 8 mg dexamethasone (DECADRON PHOSPHATE) Given injection ONCE INTRA PROCEDURE, Starting 12/22/19 at 1525, Until 12/22/19 at 1601, Routine, Intra-op 12/22/2019 3:09 PM OPTOMETRIC TECHNOLOGIST 100 mcg FENTanyl PF (SUBLIMAZE (PF)) injection Given ONCE INTRA PROCEDURE, Starting 12/22/19 at 1509, Until 12/22/19 at 1601, Routine, Intra-op 12/22/2019 2:40 PM OPTOMETRIC TECHNOLOGIST lactated ringers IV infusion New Bag CONTINUOUS PRN, Starting 12/22/19 at 1440, Until 12/22/19 at 1601, Routine, Intra-op 12/22/2019 3:09 PM OPTOMETRIC TECHNOLOGIST 5 mg lidocaine 2% (XYLOCAINE) 20 mg/mL (2 %) Given injection ONCE INTRA PROCEDURE, Starting 12/22/19 at 1509, Until 12/22/19 at 1601, Routine, Intra-op 12/22/2019 3:25 PM OPTOMETRIC TECHNOLOGIST 50 mcg phenylephrine (VAZCULEP) injection Given ONCE INTRA PROCEDURE, Starting 12/22/19 at 1525, Until 12/22/19 at 1601, Routine, Intra-op 50 mcg Given 12/22/2019 3:22 PM OPTOMETRIC TECHNOLOGIST 12/22/2019 3:11 PM OPTOMETRIC TECHNOLOGIST 20 mg propofol IV infusion Given ONCE INTRA PROCEDURE, Starting 12/22/19 at 1509, Until 12/22/19 at 1601, Routine, Intra-op 200 mg Given 12/22/2019 3:09 PM OPTOMETRIC TECHNOLOGIST documented in this encounter Insurance Type Payer Benefit Subscriber ID Effective Phone Address Plan / Dates Group [id number] 2017-[place] ([place]) [place] [address] documented as of this encounter
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
--- OUTSIDE RECORDS SUMMARY | 2020-03-04 06:17 | XMS REPORT | Summary of Care ---
Author Author [facility] - Health Organization [facility] - Health Address Unknown Phone Unavailable Care Team Providers Care Side Stapler Name Role Phone Bebo Acevedo PCP Reason for Visit * Reason Comments POST-OP * (Routine) Referred By Contact Referred To Contact Status Reason Specialty Diagnoses / Procedures Jt Bernal MD [address] [facility] [id number] [place] [address] Valeriy Bolanos MD [address] [place] [address] Authorized Orthopedic Diagnoses Surgery Chronic pain syndrome Neuroma digital nerve, right Complex regional pain syndrome type 1 of right lower extremity Right foot pain P rocedures CONSULT/REFERRAL ORTHOPAEDIC SURGERY Encounter Details Care Team Description Date Type Department Valeriy Bolanos MD [address] [place], [place] [id number] Extensor tendon contracture (Primary Dx) ; Complex regional pain syndrome type 1 of right lower extremity; Capsulitis of metatarsophalangeal (MTP) joint of right foot; Callus of foot; Chronic pain syndrome; Right foot pain; Adjustment disorder with mixed anxiety and depressed mood; Foot pain, right 02/01/[address] [facility] edic Visit Surgery- [address] [phone] Allergies Comments Active Allergy Reactions Severity Noted Date Metoclopramide Hcl Swelling High 11/19/2017 Ondansetron Hcl (Pf) Rash High 8 documented as of this encounter (statuses as of 02/01/2020) Medications End Date Status Medication Sig Dispensed [...] 20 mg by 0 05/29 mouth. 9 02/22/2020 Active gabapentin 800 mg Take 1 tablet 63 tablet 0 tabletIndications: by mouth 3 0 Extensor tendon (three) times contracture, Complex daily for 21 regional pain syndrome days. type 1 of right lower extremity, Capsulitis of metatarsophalangeal (MTP) joint of right foot 02/29/2020 Active methocarbamol 750 mg Take 1 tablet 112 tablet 0 tabletIndications: by mouth 4 0 Extensor tendon (four) times contracture, Complex daily for 28 regional pain syndrome days. type 1 of right lower extremity, Capsulitis of metatarsophalangeal (MTP) joint of right foot Active Diclofenac Sodium Apply to 100 g 3 02/01/20 2 (VOLTAREN) 1 % area(s) 2 0 gelIndications: Extensor (two) times tendon contracture daily as needed for Pain (scale 7-10) (Apply 1 gram to affected area twice a day as needed.). 02/01/2020 Discontinued (Reorder) gabapentin 800 mg tablet Take 800 mg 0 08/11 by mouth. 9 documented as of this encounter (statuses as of 02/01/2020) Active Problems Problem Noted Date Capsulitis of metatarsophalangeal (MTP) joint of righ t foot 10/19/2019 Callus of foot 10/19/2019 Complex regional pain syndrome type 1 of right lower extremity 01/15/2018 Overview: Added automatically from request for [employer] [id number] Chronic pain syndrome 11/19/2017 Overview: Added automatically from request for [employer] [id number] Neuroma digital nerve, right 11/19/2017 Overview: [facility] [id number] Complex regional pain syndrome type 1 of both lower e xtremities 11/19/2017 Overview: [facility] [id number] Migraine without status migrainosus, not intractable, unspecified migraine 11/19/2017 type Overview: [facility] [id number] documented as of this encounter (statuses as of 02/01/2020) Social History Date Tobacco Use Types Packs/Day [...] filedocumented in this encounter Progress Notes * Antonio Maki MD - 02/01/2020 1:50 PM CDT Orthopedic Clinic Note 02/01/2020 12:42 CC: Surgery follow up Procedure: right 2-4 MT head resections 12/22/19 Patient is doing well, pain controlled, no difficulties with incisions. Complia nt with weight bearing restrictions. No fevers/chills, chest pain/SOB, nausea/vomiting, new numbness, tingling, weakn ess TELEHEALTH NOTE Verbal consent obtained from Patient: Maicol Chao due to the COVID-19 pandemic fo r telehealth services provided below. Communication with patient was conducted via Telephone. Location of Patient: Home Location of Provider: Clinic Date of Service: 02/01/2020 Chief Complaint: post op HPI: Maicol Chao is a 59 year old male post op from above. Has been bearing weigh t in a post op shoe still. Reports middle 3 toes are pointing upwards. MEDICATIONS: Current Outpatient Medications Medication Sig Dispense Refill gabapentin 800 mg tablet Take 1 tablet [...] No current facility-administered medications for this visit. TELEHEALTH EXAM Constitutional: no acute distress Resp: no audible labored breathing Psych: normal affect Skin: no reported rashes MSK: middle 3 toes pointing up, skin healed, callous to under 2-4th MT heads Metoclopramide hcl and Ondansetron hcl (pf) No [...] Surgeon: Valeriy Bolanos MD; Location[facility] ASSESSMENT/ PLAN Maicol Chao is a 59 year old male with PMH as above presenting with: 1. Extensor tendon contracture 2. Complex regional pain syndrome type 1 of right lower extremity 3. Capsulitis of metatarsophalangeal (MTP) joint of right foot 4. Callus of foot 5. Chronic pain syndrome 6. Right foot pain 7. Adjustment disorder with mixed anxiety and depressed mood 8. Foot pain, right - Voltaren gel - Refill medications - WBAT OK for regular shoe - Follow-up PRN After visit summary (AVS ) documentation will be available through [facility] for t his encounter. A total of 10 minutes was spent on the Telephone with the patient. Antonio Maki MD documented in this encounter Plan of Treatment Care Team Description Date Type Tank Truck MechanicJt Bernal MD [id number] [place] [address] [phone] 02/09/2020 Telemedicine Pain Medicine Visit Health Maintenance Due Date Last Done Comments [...] ot Implanted Type Area Manufactur er 07/29/2021 [id number] / [id number] / [id number] Lead Vectris 1x8 Compact Trial Lead N/A: Back Medtronic Medtronic #[id number] - [id number] Implanted: Qty: 1 on 12/26/2017 by Jt Bernal MD at [facility] 12/06/2021 [id number] / [id number] / [id number] Lead Vectris 1x8 Compact Trial Lead Back Medtronic Medtronic #[id number] - Sna Implanted: Qty: 1 on 12/26/2017 by Jt Bernal MD at [facility] documented as of this encounter Results Not on filedocumented in this encounter Visit Diagnoses Diagnosis Extensor tendon contracture - Primary Contracture of tendon (sheath) Complex regional pain syndrome type 1 o f right lower extremity Capsulitis of metatarsophalangeal (MTP) joint of right foot Callus of foot Corns and callosities Chronic pain syndrome Right foot pain Pain in limb Adjustment disorder with mixed anxiety and depressed mood Foot pain, right Pain in limb documented in this encounter Insurance Type Payer Benefit Subscriber ID Effective Phone Address Plan / Dates Group [id number] 2016-[address] (Home) [place] [address] documented as of this encounter
--- NOTE | 2020-03-04 07:11 | NUR ---
SPIRITUAL CARE - Pre-Surgery Assessment: Pt in bed. Pt's at bedside. Pt reported supportive attention from family and friends. Intervention: I provided pastoral presence, hospitality, and sympathetic listening. I acquainted pt with availability of funeral prearrangement counselor while hospitalized. Outcome: Pt expressed appreciation for visit. No need for follow up indicated at this time. MOE Gastelumlain Spiritual Care Department O: [phone]
[2020-03-04 09:55] VITALS: BP 110/64
--- NOTE | 2020-03-07 12:24 | Operative Report ---
DATE OF PROCEDURE: 03/04/2020 SURGEON: Virgil Poon MD PREOPERATIVE DIAGNOSIS: Bilateral spermatocele. POSTOPERATIVE DIAGNOSIS: Bilateral spermatocele. PROCEDURES: 1. Excision of left spermatocele (entirely separate procedure for left spermatocele). 2. Excision of right spermatocele (entirely separate procedure for right spermatocele). ANESTHESIA: General. ESTIMATED BLOOD LOSS: Minimal. COMPLICATIONS: None. INDICATIONS: Mr. 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 He had a long discussion about alternatives, risks, and benefits of doing nothing, excision. He voiced understanding that is high likelihood that this will recur, as already have in the past. He voiced understanding of the options, alternatives, risks, and benefits, and elected to proceed. PROCEDURE IN DETAIL: After informed consent was obtained, the patient was taken to the operative suite, placed supine on the operating table, underwent general anesthesia by Anesthesia Service, placed in supine position and sterilely prepped and draped in standard fashion for scrotal surgery. A midline incision was made, carried through skin and subcutaneous tissues. The right testicle was delivered first extra vaginally. Vaginalis was sharply incised. Large spermatoceles were evident. These were sharply dissected utilizing combination of sharp and electrocautery dissection. A sales representative raw fibers section of one sac was sent off the table as specimens. The neck was ligated with chromic gut suture. Attention was then toward the left testicle hemiscrotum, where this process was repeated. At the cessation of this procedure, there was a good bit of oozing in the cremasters. Meticulous hemostasis was obtained. The wound was irrigated. The testicle was placed back in normal anatomic location and position. The cremasters were closed with a running chromic gut stitch after a Lulu drain was placed. The skin was closed with a running locked chromic gut stitch. The patient was awakened from anesthesia and transported to the recovery room in excellent condition, no untoward effects noted. All sponge and instrument counts were correct x2. Virgil Poon MD ES/MODL /[id number]
== END | disposition home or self-care (01) ==
LOC: OR 06:08
PROVIDERS: ATTEND Urology
DX: N43.40 Spermatocele of epididymis, unspecified (principal); N40.1 Benign prostatic hyperplasia with lower urinary tract symptoms; N13.8 Other obstructive and reflux uropathy; R39.14 Feeling of incomplete bladder emptying; R35.1 Nocturia; R39.15 Urgency of urination; N52.9 Male erectile dysfunction, unspecified; M26.609 Unspecified temporomandibular joint disorder, unspecified side; G43.909 Migraine, unspecified, not intractable, without status migrainosus; J44.9 Chronic obstructive pulmonary disease, unspecified; E78.5 Hyperlipidemia, unspecified; K21.9 Gastro-esophageal reflux disease without esophagitis; G89.29 Other chronic pain; I10 Essential (primary) hypertension; F41.9 Anxiety disorder, unspecified; Z88.8 Allergy status to other drugs, medicaments and biological substances; Z01.810 Encounter for preprocedural cardiovascular examination; Z01.812 Encounter for preprocedural laboratory examination; Z01.818 Encounter for other preprocedural examination; Z11.59 Encounter for screening for other viral diseases; Z87.891 Personal history of nicotine dependence
CPT/HCPCS: 36415; 54840; 71046; 85025; 87635; 88304; 93005; J0131; J0690; J1100; J2001; J2250; J2704; J3010